=== PATIENT | female | born 1980 | race Caucasian/White ===

== ENCOUNTER 2023-07-07 09:55 | Outpatient (AMB) | payer OTHER, SELFPAY ==
--- NOTE | 2023-07-07 09:59 | MHC.PC.OV ---
Vital Signs 07/07/23 10:02 Height 5 ft 6 in Weight 219 lb BMI 35.3 BP 118/76 Blood Pressure Location Lt brachial Position Sitting Pulse 86 Pulse Source Pulse Oximeter Pulse Oximetry (%) 96 Intake Visit Reasons: New patient, for physical exam Intake Note: pt is here for field marketer establish care, concern back pain Hot Roller Required: No Accompanied by: Self / Same As Patient Allergies No Known Allergies Allergy (Verified 07/07/23 10:25) Medication List - Last Reconciled 07/07/23 by Mohini Almaguer MD bupropion HCl (Wellbutrin XL) 150 mg PO QAM multivitamin with minerals (Hair,Skin and Nails tablet) 1 tab PO DAILY omeprazole 20 mg PO BID Tobacco use date assessed: 07/07/23 Dental Screening Dental Screen Date: 07/07/23 Did you have a dental visit in the last 12 months?: Yes Did you have a dental problem in the last 6 months where you did not have access to dental care?: No Was dental information given to patient?: Patient has dentist HPI New patient, for physical exam HPI Details 43-year-old lady here today to establish with new PCP and for physical exam. She has history of depression with anxiety, currently stable controlled on bupropion, sees a therapist as needed. Has history of dysfunctional uterine bleeding status post partial hysterectomy done at [facility]. She has chronic GERD status post upper endoscopy done at [facility] and also had a colonoscopy done 2020 with negative findings. Currently sees [facility] for her chronic low back pain due to lumbar degenerative disc disease and has history of plantar fasciitis bilateral, currently asymptomatic. Has had COVID back infection in the past, not interested in getting any vaccinations Has a lesion on cheek which she would like to get checked. Requesting dermatology referral [facility] Medical History (Updated 07/11/23 @ 18:33 by Mohini Almaguer MD) Mixed anxiety and depressive disorder Obesity (BMI 30.0-34.9) Chronic GERD History of COVID-19 Lumbar degenerative disc disease Plantar fasciitis, bilateral History of dysfunctional uterine bleeding Surgical History (Updated 07/07/23 @ 10:50 by Mohini Almaguer MD) Hx of esophagogastroduodenoscopy Hx of colonoscopy History of partial hysterectomy Hx of tubal ligation S/P excision of lipoma Family History (Updated 07/07/23 @ 10:10 by Kosta Fletcher [facility]) Mother Heart valve problem Father Diabetes Paternal Grandmother Diabetes Paternal Grandfather Diabetes Social History (Updated 07/07/23 @ 10:11 by Kosta Fletcher [facility]) Housing: Apartment Alcohol intake: current Alcohol intake frequency: a few times a month Alcohol type: hard liquor Patient Tobacco Use Status: Never used Tobacco e-Cigarette/Vaping Use: Never Used Substance Use Type: Marijuana service: No Current occupational status: employed Current occupation: [employer] employee Cognitive needs: No Hearing needs: No Vision needs: Yes Female Reproductive History Menstrual Age of Menarche: 12 control method: permanent sterilization Menopause type: surgical Questionnaire PHQ-9 Over the last 2 weeks, how often have you been bothered by any of the following problems? 1. Little interest or pleasure in doing things: several days 2. Feeling down, depressed, or hopeless: several days 3. Trouble falling or staying asleep, or sleeping too much: not at all 4. Feeling tired or having little energy: not at all 5. Poor appetite or overeating: several days 6. Feeling bad about yourself - or that you are a failure or have let yourself or your family down: several days 7. Trouble concentrating on things, such as reading the newspaper or watching television: not at all 8. Moving or speaking so slowly that other people could have noticed. Or the opposite - being so fidgety or restless that you have been moving around a lot more than usual: not at all 9. Thoughts that you would be better off or of hurting yourself in some way: not at all Total score: 4 Depression Screening Interpretation: Positive Depression Screening Follow-up: Existing condition, In treatment and Community Mental Health Worker F/U (Currently sees a therapist as needed) 07797 - PHQ-9 Billing: Yes Source: Developed by Drs. Dusty Calle, Belkys Yoo, Moy Pugh and colleagues, with an educational michael from [employer]. Thrive Questionnaire Date Thrive assessed: 07/07/23 I am a: Patient What is your living situation today?: I have a steady place to live Within the past 12 months, did the food you bought not last and you didn't have the money to get more?: Never true Within the past 12 months, did you worry whether your food would run out before you got money to buy more?: Never true Do you have trouble paying for medicines?: No Do you have trouble getting transportation to medical appointments?: No Do you have trouble paying your heating and electricity bill?: No Do you have trouble taking care of your child, family member or friend?: No Do you have trouble with day-to-day activities such as bathing, preparing meals, shopping, managing finances, etc.?: No Are you currently unemployed and looking for a job?: No Are you interested in more education?: No Please select the resources that you would like help with: None AUDIT C Alcohol Use Questionnaire (AUDIT-C) 1. How often do you have a drink containing alcohol?: Monthly or less Total Score: 1 Score Reviewed/Action Taken: Yes JANAE-7 AMB Questionnaire JANAE-7 Feeling nervous, anxious, or on edge: 2 = More than half the days Not being able to stop or control worryin = Several days Worrying too much about different things: 1 = Several days Trouble relaxin = Not at all Being so restless that it is hard to sit still: 0 = Not at all Becoming easily annoyed or irritable: 1 = Several days Feeling afraid as if something awful might happen: 0 = Not at all Total JANAE-7 score (0-4 normal; 5-9 mild; 10-14 moderate; 15-21 severe): 5 Source: Developed by Drs. Dusty Calle, Belkys Yoo, Moy Pugh and colleagues, with an educational michael from [employer]. JANAE-7 Assessment Billing JANAE-7 Assessment Tool: JANAE-7 Assessment 56544 Review of Systems Const Denies body aches, Denies fatigue, Denies fever(s), Denies headache(s) and Denies weakness Eyes Details: Sees [facility] for her routine eye exam, wears readers Denies change in vision, Denies eye discharge and Denies itchy eyes ENT Details: sees a dentist in [place] Denies dizziness, Denies headache(s), Denies nasal congestion, Denies nasal discharge and Denies sore throat Card Denies chest pain, Denies lightheadedness, Denies palpitations and Denies dyspnea Resp Denies chest congestion, Denies cough, Denies dyspnea and Denies wheezing GI Denies abdominal pain, Denies change in bowel habits and Denies heartburn Denies hematuria, Denies urinary frequency, Denies dysuria and Denies urinary urgency Musc Reports back pain (Sees [facility]) and Reports stiffness Skin/Breast Denies breast pain, Denies breast mass and Denies rash Neuro Denies dizziness, Denies headache(s) and Denies weakness Psych Reports as per HPI Endo Denies fatigue, Denies polydipsia, Denies polyuria and Denies palpitations Jason/Lymph Denies easy bruising Aller/Immun Denies itchy eyes, Denies seasonal rhinorrhea and Denies wheezing Physical exam (Primary Care) Vital Signs: Last Vital Signs Pulse 86 07/07/23 10:02 BP 118/76 07/07/23 10:02 Pulse Ox 96 07/07/23 10:02 BMI result Body Mass Index 35.3 Tobacco/Smoking Status: Tobacco use Status Tobacco use date assessed 07/07/23 07/07/23 10:13 Patient Tobacco Use Status Never used Tobacco 07/07/23 10:13 e-Cigarette/Vaping Use Never Used 07/07/23 10:13 PHQ-9: PHQ-9 Score PHQ-9: Total score 4 07/07/23 13:59 Depression Screening Interpretation: Positive Depression Screening Follow-up: Existing condition, In treatment and Community Mental Health Worker F/U (Currently sees a therapist as needed) Thrive Assessment: Date of Thrive Assessment Date Thrive assessed 07/07/23 07/07/23 13:59 Const General: comfortable, no acute distress and alert Nutritional Appearance: obese Orientation/consciousness: patient oriented x3 HENMT Head: Yes normocephalic and Yes atraumatic Ears: external ears normal, TM's normal bilaterally and EAC's normal General nose exam: Normal external nose present and No nasal discharge present Face and sinus: Yes face symmetric Mouth: Normal oral and palatal mucosa present, lip normal, tongue normal, oropharynx normal and moist mucous membranes Eyes General: appearance normal, both eyes and all related structures Eyelids: Yes eyelids normal Conjunctivae: conjunctivae normal Sclerae: sclerae normal Pupils: Equal, round and reactive pupils present EOM: EOMs intact bilaterally Neck Neck: Yes full ROM, Yes no lymphadenopathy and Yes supple Thyroid: Thyroid normal Chest Chest palpation & inspection: normal inspection of the chest and normal palpation of entire chest wall Breast/axilla inspection: normal inspection of the breasts Breast/axilla palpation: normal palpation of the breasts Resp Effort & Inspection: normal respiratory effort and able to speak in complete sentences Auscultation: clear to auscultation bilaterally Cardio Rate: regular rate Rhythm: regular rhythm Heart sounds: S1 normal heart sound present and S2 normal heart sound present GI Palpation (GI): Soft to palpation, nontender, no guarding and no masses Auscultation: normal bowel sounds General: Yes no CVA tenderness Back/Spine/Pelvis Back: no CVA tenderness and No back tenderness Skin Other: Hyperpigmented slightly raised lesion on cheek Neuro General: patient oriented x3, gait normal, moves all extremities, Normal light touch and pain sensation, no focal motor deficits and CN's II-XI intact bilaterally Cranial nerves: Yes Equal, round and reactive pupils present Cognition (Neuro): normal cognition Gait exam (Neuro): Normal gait present Motor exam (neuro): 5/5 motor strength present throughout Extrem General: Yes normal to inspection, Yes full ROM, Yes no joint enlargement, Yes no pedal edema and Yes normal gait Psych Appearance: grossly normal and well kempt Mental Status: mental status grossly normal Speech and movement: Normal speech and movement present Affect: normal affect Attitude: cooperative Thought process: Normal thought process present Thought content: Normal thought content present Assessment and Plan Assessment & Plan (1) Annual visit for general adult medical examination with abnormal findings: Code(s): Z00.01 - Encounter for general adult medical examination with abnormal findings Plan: Will check appropriate labs. Continue with regular dental visit every 6 months and regular eye exams, at least every [address] Livingston. Take adequate calcium in diet and vitamin-D 3 at 2000 IU per cap once a day, in addition to weight-bearing exercises to help maintain good muscle tone and weight control. Instructed to do self-breast exam, and recommended to get yearly mammogram, referral ordered. Has already had a colonoscopy in 2020. Declines vaccines (2) Chronic GERD: Code(s): K21.9 - Gastro-esophageal reflux disease without esophagitis Plan: Takes omeprazole 20 mg twice a day (3) Lumbar degenerative disc disease: Comment: sees [facility] Code(s): M51.36 - Other intervertebral disc degeneration, lumbar region Plan: Currently followed at [facility] (4) Plantar fasciitis, bilateral: Code(s): M72.2 - Plantar fascial fibromatosis Plan: Currently asymptomatic (5) History of dysfunctional uterine bleeding: Comment: 3x Code(s): Z87.42 - Personal history of other diseases of the female genital tract Plan: Status post partial hysterectomy (6) Obesity (BMI 30.0-34.9): Code(s): E66.9 - Obesity, unspecified Plan: . Recommended focusing on improving your health instead of dieting. : Eat Mediterranean diet, limit foods high in fat, sugar, and calories, eat slowly, pay attention to portion sizes, plan your meals ahead of time, start regular physical activity 150 minutes of moderate intensity exercise or 90 minutes/week of vigorous exercise and increase water intake. (7) Facial skin lesion: Code(s): L98.9 - Disorder of the skin and subcutaneous tissue, unspecified Plan: Dermatology consult ordered (8) Skin cancer screening: Code(s): Z12.83 - Encounter for screening for malignant neoplasm of skin Plan: Dermatology consult ordered (9) Mixed anxiety and depressive disorder: Code(s): F41.8 - Other specified anxiety disorders Plan: Continue with bupropion HCL, followed by therapist Orders: Orders MM screening mammo BI 07/07/23 Z12.31 - Encounter for screening mammogram for malignant neoplasm of breast Complete Blood Count Auto Diff 07/07/23 F32.A - Depression, unspecified, K21.9 - Gastro-esophageal reflux disease without esophagitis, M51.36 - Other intervertebral disc degeneration, lumbar region, Z00.01 - Encounter for general adult medical examination with abnormal findings, Z87.42 - Personal history of other diseases of the female genital tract Comprehensive [place]. Panel Fast 07/07/23 F32.A - Depression, unspecified, K21.9 - Gastro-esophageal reflux disease without esophagitis, M51.36 - Other intervertebral disc degeneration, lumbar region, Z00.01 - Encounter for general adult medical examination with abnormal findings, Z87.42 - Personal history of other diseases of the female genital tract Lipid Panel 07/07/23 F32.A - Depression, unspecified, K21.9 - Gastro-esophageal reflux disease without esophagitis, M51.36 - Other intervertebral disc degeneration, lumbar region, Z00.01 - Encounter for general adult medical examination with abnormal findings, Z87.42 - Personal history of other diseases of the female genital tract TSH reflex Free T4 07/07/23 F32.A - Depression, unspecified, K21.9 - Gastro-esophageal reflux disease without esophagitis, M51.36 - Other intervertebral disc degeneration, lumbar region, Z00.01 - Encounter for general adult medical examination with abnormal findings, Z87.42 - Personal history of other diseases of the female genital tract Vitamin D 25-OH Total 07/07/23 F32.A - Depression, unspecified, K21.9 - Gastro-esophageal reflux disease without esophagitis, M51.36 - Other intervertebral disc degeneration, lumbar region, Z00.01 - Encounter for general adult medical examination with abnormal findings, Z87.42 - Personal history of other diseases of the female genital tract Vitamin B12 and Folate 07/07/23 F32.A - Depression, unspecified, K21.9 - Gastro-esophageal reflux disease without esophagitis, M51.36 - Other intervertebral disc degeneration, lumbar region, Z00.01 - Encounter for general adult medical examination with abnormal findings, Z87.42 - Personal history of other diseases of the female genital tract Referrals Dermatology Referral L98.9 - Disorder of the skin and subcutaneous tissue, unspecified, Z12.83 - Encounter for screening for malignant neoplasm of skin Medications: New bupropion HCl (Wellbutrin XL) 150 mg PO QAM 90 tabs 3RF Coding Level of Care Code New Pt Prev Care 40-64y(84642) Diagnoses Annual visit for general adult medical examination with abnormal findings Z00.01 Chronic GERD K21.9 Lumbar degenerative disc disease M51.36 Plantar fasciitis, bilateral M72.2 History of dysfunctional uterine bleeding Z87.42 Obesity (BMI 30.0-34.9) E66.9 Facial skin lesion L98.9 Skin cancer screening Z12.83 Mixed anxiety and depressive disorder F41.8 Additional Codes JANAE-7 Assessment Billing - JANAE-7 Assessment Tool: JANAE-7 Assessment 74431 ([id number])
[2023-07-07 10:02] VITALS: BP 118/76; PULSE 86; O2SAT 96; BMI 35.3
== END 2023-07-07 11:41 | disposition home or self-care (01) ==
PROVIDERS: Visit Provider Internal Medicine
DX: Z00.01 Encounter for general adult medical examination with abnormal findings (principal); K21.9 Gastro-esophageal reflux disease without esophagitis; M51.36 Other intervertebral disc degeneration, lumbar region; M72.2 Plantar fascial fibromatosis; Z87.42 Personal history of other diseases of the female genital tract; E66.9 Obesity, unspecified; L98.9 Disorder of the skin and subcutaneous tissue, unspecified; Z12.83 Encounter for screening for malignant neoplasm of skin; F41.8 Other specified anxiety disorders
CPT/HCPCS: 99386

== ENCOUNTER 2023-07-15 10:43 | Outpatient (REF) | payer OTHER, SELFPAY ==
--- NOTE | ~2023-07-15 | MM_ITS ---
EXAMINATION: MM SCREENING DIGITAL BREAST TOMOSYNTHESIS, BILATERAL CLINICAL INFORMATION: Screening. Asymptomatic. COMPARISON: Mammography: This is a baseline study. TECHNIQUE: Digital breast tomosynthesis is performed in both the craniocaudal and mediolateral oblique views along with computer-aided detection (CAD). Synthesized 2D images are generated from the tomosynthesis. FINDINGS: The breasts are heterogeneously dense, which may obscure small masses (ACR BI-RADS breast composition Category c). There are no significant masses, abnormal calcifications, or other abnormalities. MM/MM tomosynthesis screening BI IMPRESSION: No mammographic evidence of malignancy. ASSESSMENT: BI-RADS BI-RADS 1 - Negative RECOMMENDATION: Routine annual mammography screening. 1 year F/U This examination should not preclude the clinical evaluation of a suspicious palpable abnormality. This patient's information was entered into a reminder system with a target due date for their next mammogram.
== END 2023-07-15 10:44 | disposition home or self-care (01) ==
LOC: HO.MAMMO 10:43
PROVIDERS: PCP Internal Medicine; Visit Provider Internal Medicine
DX: Z12.31 Encounter for screening mammogram for malignant neoplasm of breast (principal)
CPT/HCPCS: 77063; 77067

== ENCOUNTER → 2023-07-15 10:45 | Outpatient (BNV) | payer OTHER, SELFPAY | PROVIDERS: PCP Internal Medicine; Visit Provider Radiology Diagnostic Radiology | DX: Z12.31 Encounter for screening mammogram for malignant neoplasm of breast (principal) | CPT/HCPCS: 77063; 77067 ==

== ENCOUNTER 2023-11-15 11:06 | Outpatient (REF) | payer OTHER, SELFPAY ==
[2023-11-15 12:40] LABS: Binax Internal Control QC Valid; Binax Now Covid-19 Ag Negative (Negative); Binax Performed by: HO.BONILM
[2023-11-15 13:18] LABS: MANUAL DIFF FLAG NO
[2023-11-15 13:33] LABS: Basophils Absolute Auto 0.1 X10*3/uL (0.0-0.2); Basophils Percent Auto 0.6 % (0-2); Eosinophils Absolute Auto 0.2 X10*3/uL (0.0-0.4); Eosinophils Percent Auto 2.1 % (0-4); Hematocrit 45.3 % (37.0-47.0); Hemoglobin 15.2 g/dl (12.0-16.0); Imm Gran Abs Auto 0.06 X10*3/uL (0.00-0.03); Imm Gran Pct Auto 0.7 % (0.0-0.4); Lymphocytes Absolute Auto 2.1 X10*3/uL (1.2-4.9); Mean Corpuscular HGB Conc 33.6 g/dl (31.0-35.0); Mean Corpuscular Hemoglobin 30.6 pg (27.0-33.0); Mean Corpuscular Volume 91.3 fL (80.0-98.0); Mean Platelet Volume 10.3 fL (9.4-12.3); Monocytes Absolute Auto 0.7 X10*3/uL (0.1-1.2); Monocytes Percent Auto 8.1 % (2-11); Neutrophils Absolute Auto 5.7 x10*3/uL (2.0-8.3); Neutrophils Percent Auto 64.5 % (45-73); Platelet Count 296 X10*3/uL (160-400); Red Blood Count 4.96 X10*6/uL (4.20-5.50); Red Cell Distribution Width 11.9 % (11.0-16.0); White Blood Count 8.8 X10*3/uL (4.8-10.8)
[2023-11-15 13:58] LABS: Alanine Aminotransferase 18 U/L (0-31); Albumin Level 4.2 g/dL (3.5-5.0); Alkaline Phosphatase 109 U/L (39-117); Anion Gap 11 (12-20); Aspartate Amino Transferase 16 U/L (5-31); Bilirubin Total 0.4 mg/dL (0.0-1.0); Blood Urea Nitrogen 11 mg/dL (9-16); Calcium 9.2 mg/dL (8.4-10.2); Carbon Dioxide 26 mmol/L (22-29); Chloride 105 mmol/L (96-108); Cholesterol 189 mg/dL (<200); Estimated Glomerular Filt Rate > 60; Glucose Fasting 94 mg/dL (60-99); HDL Cholesterol 53 mg/dL (>40); LDL Cholesterol Calculated 124 mg/dL (<100); Potassium 4.3 mmol/L (3.3-5.1); Sodium 138 mmol/L (135-145); Total Protein 7.8 g/dL (6.5-8.0); Triglycerides 62 mg/dL (<150)
[2023-11-15 14:18] LABS: Vitamin D 25-OH Total 45.1 ng/mL (>30)
[2023-11-15 14:19] LABS: Folate 6.9 ng/mL (> or = 4.0); Vitamin B12 479 pg/mL (200-900)
== END 2023-11-15 11:07 | disposition home or self-care (01) ==
LOC: HO.HMGCLDS 11:06
PROVIDERS: PCP Internal Medicine; Referring Provider Physician Assistant; Visit Provider Internal Medicine
DX: Z00.01 Encounter for general adult medical examination with abnormal findings (principal); K21.9 Gastro-esophageal reflux disease without esophagitis; F32.A Depression, unspecified; M51.36 Other intervertebral disc degeneration, lumbar region; B34.9 Viral infection, unspecified; Z87.42 Personal history of other diseases of the female genital tract
CPT/HCPCS: 36415; 80053; 80061; 82306; 82607; 82746; 84443; 85025; 87811

== ENCOUNTER 2023-11-15 11:15 | Outpatient (AMB) | payer OTHER, SELFPAY ==
[2023-11-15 11:38] VITALS: BP 124/72; PULSE 97; TEMP 36.8; O2SAT 96; BMI 35.2
--- NOTE | 2023-11-15 11:38 | AM.OFFWIN_ITS ---
Intake Vital Signs 11/15/23 11:38 Height 5 ft 6 in Weight 98.883 kg BMI 35.2 BP 124/72 Blood Pressure Location Lt brachial Position Sitting Pulse 97 Pulse Source Pulse Oximeter Temp 98.2 F Temp Source Temporal Artery Scan Pulse Oximetry (%) 96 Oxygen Delivery Method Room Air Intake Visit Reasons: EP stuffy nose headache sore throat [id number] Intake Note: pt is here today for stuff nose headache sore throat started Patient Tobacco Use Status: Never used Tobacco Allergies No Known Allergies Allergy (Verified 07/07/23 10:25) HPI HPI Comments History of Present Illness Details 1153 43-year-old female presents with fatigue , malaise, myalgias, cough, sore throat x2 days. Daughter was sick at home with similar symptoms however now improving. Reports some wheezing patient has history of asthma however does not have an inhaler. Denies chest pain, fevers, chills, nausea, vomiting, diarrhea, vision changes, headache and weakness. Physical examination benign Likely viral illness. Unlikely meningitis, encephalitis epiglottitis, retropharyngeal or peritonsillar abscess, threat to airway, pneumonia, ACS or PE. Plan viral testing. Will send albuterol inhaler. Educated patient on diagnosis and treatment plan, answered all question, patient verbalizes understanding. At this time patient will be discharged home, advised to return with new or worsening symptoms. Educated on worrisome signs and symptoms and when to return. At this time I feel comfortable discharge home. [facility] Medical History Mixed anxiety and depressive disorder Obesity (BMI 30.0-34.9) Chronic GERD History of COVID-19 Lumbar degenerative disc disease Plantar fasciitis, bilateral History of dysfunctional uterine bleeding Surgical History Hx of esophagogastroduodenoscopy Hx of colonoscopy History of partial hysterectomy Hx of tubal ligation S/P excision of lipoma Family History Mother Heart valve problem Father Diabetes Paternal Grandmother Diabetes Paternal Grandfather Diabetes Social History Housing: Apartment Alcohol intake: current Alcohol intake frequency: a few times a month Alcohol type: hard liquor Patient Tobacco Use Status: Never used Tobacco e-Cigarette/Vaping Use: Never Used Substance Use Type: Marijuana service: No Current occupational status: employed Current occupation: [employer] employee Cognitive needs: No Hearing needs: No Vision needs: Yes Female Reproductive History Menstrual Age of Menarche: 12 Review of Systems Const All systems reviewed & are unremarkable except as noted in HPI and below Physical Exam Vital Signs: Last Vital Signs Temp 98.2 F 11/15/23 11:38 Pulse 97 11/15/23 11:38 BP 124/72 11/15/23 11:38 Pulse Ox 96 11/15/23 11:38 Oxygen Delivery Method Room Air 11/15/23 11:38 BMI result Body Mass Index 35.2 vss Appearance: Alert.? Oriented X3.? No acute distress.? Head: Normocephalic, atraumatic, no step-offs or deformities Eyes: Pupils equal, round and reactive to light.? ENT: Pharynx normal.?no edema. Uvula midline. Not abscess, or exudate. Speaking in full sentences normal voice controlling secretions well. Neck: Normal inspection.? Neck supple.? CVS: Normal heart rate and rhythm.? Pulses normal.? Respiratory: No respiratory distress.? Breath sounds normal.? Abdomen: Soft and nontender.? Skin: Skin warm and dry.? Normal skin color.? Normal skin turgor.? Extremities: No lower extremity edema.? No calf ttp. 5/5 strength to bilateral upper and lower extremities Neuro: Oriented X 3.? No motor deficit.? No sensory deficit. CN 2-12 intact Assessment & Plan Assessment & Plan (1) Viral upper respiratory illness: Code(s): J06.9 - Acute upper respiratory infection, unspecified Plan Take your medications as prescribed. If you were prescribed antibiotics today, it is important that you take your medication to their entirety, do not skip any doses, do not finish them early. Follow-up with your primary care provider this week. Return to the emergency department with new or worsening symptoms. Such as fevers, chills, chest pain, shortness of breath, nausea, vomiting, dizziness, headache, vision changes, lethargy In case of emergency call 911 Orders: Orders BinaxNOW Covid-19 Ag Today B34.9 - Viral infection, unspecified Medications: New albuterol sulfate 90 mcg/actuation 2 puffs inhalation Q6H PRN 6.7 grams 0RF shortness of breath or wheezing Coding Level of Care Code Est Pt Level 3 (17870) Diagnoses Viral upper respiratory illness J06.9
== END 2023-11-15 11:54 | disposition home or self-care (01) ==
PROVIDERS: PCP Internal Medicine; Visit Provider Physician Assistant
DX: J06.9 Acute upper respiratory infection, unspecified (principal); J02.9 Acute pharyngitis, unspecified
CPT/HCPCS: 87880; 99213

== ENCOUNTER 2024-02-16 13:05 | Outpatient (AMB) | payer OTHER, SELFPAY ==
--- NOTE | 2024-02-16 14:00 | A.OFFPC_ITS ---
Vital Signs 02/16/24 14:01 Height 5 ft 6 in Weight 225 lb BMI 36.3 BP 122/70 Blood Pressure Location Lt brachial Position Sitting Pulse 89 Pulse Source Pulse Oximeter Pulse Oximetry (%) 96 Oxygen Delivery Method Room Air Intake Visit Reasons: Follow up Labs, health concerns Intake Note: pt is here for follow up regarding labs and swollen legs Allergies No Known Allergies Allergy (Verified 04/05/24 01:02) Medication List - Last Reconciled 02/16/24 by Mohini Almaguer MD albuterol sulfate 90 mcg/actuation 2 puffs inhalation Q6H PRN bupropion HCl XL (Wellbutrin XL) 150 mg PO QAM multivitamin with minerals (Hair,Skin and Nails tablet) 1 tab PO DAILY omeprazole 20 mg PO BID Tobacco use date assessed: 02/16/24 Dental Screening Dental Screen Date: 02/16/24 Did you have a dental visit in the last 12 months?: Yes Did you have a dental problem in the last 6 months where you did not have access to dental care?: No Was dental information given to patient?: Patient has dentist HPI Follow up Labs, health concerns HPI Details 44-year-old lady here today complaining of intermittent episodes of swelling in both feet, worse towards the end of the day. She has also been having pain over dorsal aspect of both feet. This is made worse when she walks or stands for extended periods of time. She has been elevating her legs which affords only slight improvement in the swelling. Denies any chest pain or shortness of breath, no lightheadedness reported. Recent recent fasting labs done showed normal CBC, electrolytes, renal function, fasting glucose, lipids liver enzymes and vitamin-D levels are all within normal limits [facility] Medical History (Updated 02/16/24 @ 14:41 by Mohini Almaguer MD) Swelling of lower extremity Mixed anxiety and depressive disorder Obesity (BMI 30.0-34.9) Chronic GERD History of COVID-19 Lumbar degenerative disc disease Plantar fasciitis, bilateral History of dysfunctional uterine bleeding Surgical History Hx of esophagogastroduodenoscopy Hx of colonoscopy History of partial hysterectomy Hx of tubal ligation S/P excision of lipoma Family History Mother Heart valve problem Father Diabetes Paternal Grandmother Diabetes Paternal Grandfather Diabetes Social History Housing: Apartment Alcohol intake: current Alcohol intake frequency: a few times a month Alcohol type: hard liquor Patient Tobacco Use Status: Never used Tobacco e-Cigarette/Vaping Use: Never Used Substance Use Type: Marijuana service: No Current occupational status: employed Current occupation: [employer] employee Cognitive needs: No Hearing needs: No Vision needs: Yes Female Reproductive History Menstrual Age of Menarche: 12 Questionnaire PHQ-9 Over the last 2 weeks, how often have you been bothered by any of the following problems? 1. Little interest or pleasure in doing things: several days 2. Feeling down, depressed, or hopeless: not at all 3. Trouble falling or staying asleep, or sleeping too much: not at all 4. Feeling tired or having little energy: not at all 5. Poor appetite or overeating: several days 6. Feeling bad about yourself - or that you are a failure or have let yourself or your family down: several days 7. Trouble concentrating on things, such as reading the newspaper or watching television: not at all 8. Moving or speaking so slowly that other people could have noticed. Or the opposite - being so fidgety or restless that you have been moving around a lot more than usual: not at all 9. Thoughts that you would be better off or of hurting yourself in some way: not at all Total score: 3 Depression Screening Interpretation: Positive (Currently on bupropion HCL XL 150 mg in a.m.) Depression Screening Follow-up: Existing condition and In treatment Depression Screening Done: Yes 31976 - PHQ-9 Billing: Yes Source: Developed by Drs. Dusty Calle, Belkys Yoo, Moy Pugh and colleagues, with an educational michael from [employer]. Thrive Questionnaire Date Thrive assessed: 02/16/24 I am a: Patient What is your living situation today?: I have a steady place to live Within the past 12 months, did the food you bought not last and you didn't have the money to get more?: Never true Within the past 12 months, did you worry whether your food would run out before you got money to buy more?: Never true Do you have trouble paying for medicines?: No Do you have trouble getting transportation to medical appointments?: No Do you have trouble paying your heating and electricity bill?: No Do you have trouble taking care of your child, family member or friend?: No Do you have trouble with day-to-day activities such as bathing, preparing meals, shopping, managing finances, etc.?: No Are you currently unemployed and looking for a job?: No Are you interested in more education?: No Please select the resources that you would like help with: None Currently or been in a relationship where the following occur: no concerns reported THRIVE Score: 0 AUDIT C Alcohol Use Questionnaire (AUDIT-C) 1. How often do you have a drink containing alcohol?: Monthly or less 3. How often do you have six or more drinks on one occasion?: Never Total Score: 1 Score Reviewed/Action Taken: Yes JANAE-7 AMB Questionnaire JANAE-7 Date JANAE - 7 assessed: 02/16/24 Feeling nervous, anxious, or on edge: 2 = More than half the days Not being able to stop or control worryin = Several days Worrying too much about different things: 1 = Several days Trouble relaxin = Not at all Being so restless that it is hard to sit still: 0 = Not at all Becoming easily annoyed or irritable: 1 = Several days Feeling afraid as if something awful might happen: 0 = Not at all Total JANAE-7 score (0-4 normal; 5-9 mild; 10-14 moderate; 15-21 severe): 5 Source: Developed by Drs. Dusty Calle, Belkys Yoo, Moy Pugh and colleagues, with an educational michael from [employer]. JANAE-7 Assessment Billing JANAE-7 Assessment Tool: JANAE-7 Assessment 12809 Review of Systems Const Denies fatigue, Denies fever(s), Denies headache(s) and Denies weakness Eyes Denies change in vision ENT Details: sees a dentist in [place] Denies dizziness, Denies headache(s), Denies nasal congestion, Denies nasal discharge and Denies sore throat Card Denies chest pain, Denies lightheadedness, Denies palpitations and Denies dyspnea Resp Denies chest congestion, Denies cough, Denies dyspnea and Denies wheezing GI Denies abdominal pain, Denies change in bowel habits and Denies heartburn Denies hematuria, Denies urinary frequency, Denies dysuria and Denies urinary urgency Musc Reports back pain (Sees PSSP), Denies arthralgias, Denies muscle cramps and Reports stiffness Skin/Breast Denies breast pain, Denies breast mass and Denies rash Neuro Denies dizziness, Denies headache(s) and Denies weakness Psych Reports as per HPI Endo Denies fatigue, Denies polydipsia, Denies polyuria and Denies palpitations Jason/Lymph Denies easy bruising Aller/Immun Denies seasonal rhinorrhea and Denies wheezing Physical exam (Primary Care) Vital Signs: Last Vital Signs Pulse 89 02/16/24 14:01 BP 122/70 02/16/24 14:01 Pulse Ox 96 02/16/24 14:01 Oxygen Delivery Method Room Air 02/16/24 14:01 BMI result Body Mass Index 36.3 Tobacco/Smoking Status: Tobacco use Status Tobacco use date assessed 02/16/24 02/16/24 14:04 Patient Tobacco Use Status Never used Tobacco 02/16/24 14:04 e-Cigarette/Vaping Use Never Used 02/16/24 14:04 PHQ-9: PHQ-9 Score PHQ-9: Total score 4 02/16/24 14:42 Depression Screening Interpretation: Positive (Currently on bupropion HCL XL 150 mg in a.m.) Depression Screening Follow-up: Existing condition and In treatment Thrive Assessment: Date of Thrive Assessment Date Thrive assessed 02/16/24 02/16/24 14:04 Currently or been in a relationship where the following occur: no concerns reported Const General: comfortable, no acute distress and alert Nutritional Appearance: obese Orientation/consciousness: patient oriented x3 HENMT Head: Yes normocephalic Ears: external ears normal General nose exam: Normal external nose present and No nasal discharge present Face and sinus: Yes face symmetric Mouth: Normal oral and palatal mucosa present and moist mucous membranes Eyes General: appearance normal, both eyes and all related structures Neck Neck: Yes full ROM, Yes no lymphadenopathy and Yes supple Thyroid: Thyroid normal Chest Chest palpation & inspection: normal inspection of the chest and normal palpation of entire chest wall Breast/axilla inspection: normal inspection of the breasts Breast/axilla palpation: normal palpation of the breasts Resp Effort & Inspection: normal respiratory effort and able to speak in complete sentences Auscultation: clear to auscultation bilaterally Cardio Rate: regular rate Rhythm: regular rhythm Heart sounds: S1 normal heart sound present and S2 normal heart sound present GI Palpation (GI): Soft to palpation, nontender, no guarding and no masses Auscultation: normal bowel sounds General: Yes no CVA tenderness Back/Spine/Pelvis Back: no CVA tenderness and No back tenderness Skin Other: Superficial varicosities noted in both lower extremity Neuro General: patient oriented x3, gait normal, moves all extremities, Normal light touch and pain sensation, no focal motor deficits and CN's II-XI intact bilaterally Cognition (Neuro): normal cognition Gait exam (Neuro): Normal gait present Motor exam (neuro): 5/5 motor strength present throughout Extrem Other: 1+ edema bilaterally, no calf tenderness General: Yes normal to inspection, Yes full ROM, Yes no joint enlargement and Yes normal gait Psych Appearance: grossly normal and well kempt Mental Status: mental status grossly normal Speech and movement: Normal speech and movement present Affect: normal affect Attitude: cooperative Thought process: Normal thought process present Thought content: Normal thought content present Results Reviewed Results Reviewed: RUN: 02/16/24 5180 PAGE 1 [facility] [address] [place] [id number] Machine Gun Mechanic: Js Sherman M.D. Specimen Inquiry Name: Carmel Simons Age/Sex: 43/F : 1980 Unit#: [id number] Attend Dr: Mohini Almaguer MD Re11/15/23 Status: DEP REF Location: [facility] Disch: SPEC : [id number] KRAIG: 11/15/23 STATUS: COMP REQ : [id number] RECD: 11/15/[address]: Mohini Almaguer MD COMP: 11/15/23 ENTERED: 11/15/[address] [facility] [address]: ORDERED: CBC Auto Diff Test Result Flag Reference WBC 8.8 4.8-10.8 X10*3/uL RBC 4.96 4.20-5.50 X10*6/uL HGB 15.2 12.0-16.0 g/dl HCT 45.3 37.0-47.0 % MCV 91.3 80.0-98.0 fL MCH 30.6 27.0-33.0 pg MCHC 33.6 31.0-35.0 g/dl RDW 11.9 11.0-16.0 % PLT 296 160-400 X10*3/uL MPV 10.3 9.4-12.3 fL Neut Pct Auto 64.5 45-73 % ImGran Pct Auto 0.7 H 0.0-0.4 % Lymp Pct Auto 24.0 20-40 % [place] Pct Auto 8.1 2-11 % Eos Pct Auto 2.1 0-4 % Baso Pct Auto 0.6 0-2 % NRBC Pct Auto 0.0 0.0-0.2 /100WBC ANC Neut Abs # 5.7 2.0-8.3 x10*3/uL ImGran Abs Auto 0.06 H 0.00-0.03 X10*3/uL Lymph Abs Auto 2.1 1.2-4.9 X10*3/uL [place] Abs Auto 0.7 0.1-1.2 X10*3/uL Eos Abs Auto 0.2 0.0-0.4 X10*3/uL Baso Abs Auto 0.1 0.0-0.2 X10*3/uL NRBC Abs Auto 0.000 0.0-0.012 X10*3/uL Name: Carmel Simons Age/Sex: 43/F : 1980 Unit#: [id number] Attend Dr: Mohini Almaguer MD Re11/15/23 Status: DEP REF Location: [facility]: SPEC : [id number] KRAIG: 11/15/23 STATUS: COMP REQ : [id number] RECD: 11/15/[address]: Mohini Almaguer MD COMP: 11/15/23 ENTERED: 11/15/[address]: ORDERED: CMP Fast, Lipid Panel, Vitamin D 25-OH, TSH Rflx Test Result Flag Reference Sodium 138 135-145 mmol/L Potassium 4.3 3.3-5.1 mmol/L CL 105 96-108 mmol/L CO2 26 22-29 mmol/L Gap 11 L 12-20 BUN 11 9-16 mg/dL Creat 0.83 0.5-1.4 mg/dL EGFR > 60 NOTE: For -Brazilian individuals, multiply the result by 1.210. Chronic Kidney Disease: Estimated GFR < 60 mL/min/1.73m2 Severe Kidney Disease: Estimated GFR < 15 mL/min/1.73m2 FBS 94 60-99 mg/dL CA 9.2 8.4-10.2 mg/dL Total Bili 0.4 0.0-1.0 mg/dL AST (GOT) 16 5-31 U/L ALT (GPT) 18 0-31 U/L Protein, Total 7.8 6.5-8.0 g/dL Alb 4.2 3.5-5.0 g/dL Triglyceride 62 <150 mg/dL Desirable Triglyceride: less than 150 mg/dL Borderline High Triglyceride 150-199 mg/dL High Triglyceride: 200-499 mg/dL Very High Triglyceride: greater than or equal to 5OO mg/dL Cholesterol 189 <200 mg/dL Desirable Cholesterol: less than 200 mg/dL Borderline High Cholesterol: 200-239 mg/dL High Cholesterol: greater than 239 mg/dL LDL Calculated 124 H <100 mg/dL Desirable LDL: less than 100 mg/dL Near Optimal/Above Optimal LDL: 110-129 mg/dL Borderline High LDL: 130-159 mg/dL High LDL: 160-189 mg/dL Very High LDL: greater than or equal to 190 mg/dL HDL 53 >40 mg/dL Desirable HDL: greater than 40 mg/dL Note: This HDL assay may give artificially low results in patients with liver disease. Alk Phos 109 39-117 U/L Vit D 25-OH Tot 45.1 >30 ng/mL Health Based Reference Values* < 20 ng/mL Deficient 20-30 ng/mL Insufficient > 30 ng/mL Sufficient *Cara BOWMAN. N Engl J Med. 2007;357:266-280 Care must be taken in interpreting Vitamin D results from different laboratories and methodologies. Published da ta demonstrated that results from patients undergoing hemodialysis may show a negative bias when tested with various automated 25-OH vitamin D assays when compared to LC-MS/MS. When testing samples from patients whose predominant form of Vitamin D is Vitamin D2, such as patients receiving Vitamin D2 supplementation, results that are subtherapeutic should be confirmed with another method such as LC-MS/MS. TSH 0.60 0.32-4.0 uIU/mL Assessment and Plan Assessment & Plan (1) Swelling of lower extremity: Code(s): M79.89 - Other specified soft tissue disorders Plan: Advised to elevate both feet especially towards the end of the day, massaged legs with absorbent sariah or any other kask-vwf-eyvpvhp arthritis cream. Advised to try wearing travels socks when ambulating or if going to be on feet for long time. Remove at night. Will refer to vascular surgery for further evaluation management. 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 May try soaking both feet warm Epsom water. Elevate legs as much as possible. May try massaging arthritis cream to affected area. Orders: Referrals Vascular Surgery Referral M79.89 - Other specified soft tissue disorders Coding Level of Care Code Est Pt Level 4 (55224) Diagnoses Swelling of lower extremity M79.89 Pain in metatarsus of both feet M89.8X7 Additional Codes JANAE-7 Assessment Billing - JANAE-7 Assessment Tool: JANAE-7 Assessment 09817 ([id number])
[2024-02-16 14:01] VITALS: BP 122/70; PULSE 89; O2SAT 96; BMI 36.3
== END 2024-02-16 14:34 | disposition home or self-care (01) ==
PROVIDERS: PCP Internal Medicine; Visit Provider Internal Medicine
DX: M79.89 Other specified soft tissue disorders (principal); M89.8X7 Other specified disorders of bone, ankle and foot
CPT/HCPCS: 99214

== ENCOUNTER 2024-02-16 14:42 | Outpatient (REF) | payer OTHER, SELFPAY ==
--- NOTE | ~2024-02-16 | XR_ITS ---
EXAMINATION: XR FOOT, BILATERAL CLINICAL INFORMATION: Specified disorders of bone, ankle and foot. COMPARISON: None available. TECHNIQUE: 3 views of each foot. FINDINGS: Right Foot: Small dorsal and plantar calcaneal spurs. Bone mineralization is normal. Mild degenerative changes in the first metatarsophalangeal joint with mild hypertrophic change. Sclerotic density overlying the right third metatarsal head may represent a bone island. Mild degenerative changes with sclerosis at the first tarsometatarsal joint. Small ossicles adjacent to the tarsal navicular, along the medial aspect of the foot, likely accessory ossicles, but correlation with clinical exam recommended for confirmation. Left Foot: Small dorsal and plantar calcaneal spurs. Bone mineralization is normal. Mild degenerative changes in the first metatarsophalangeal joint with mild hypertrophic change. Small ossicles adjacent to the tarsal navicular, along the medial aspect of the foot, likely accessory ossicles, but correlation with clinical exam recommended for confirmation. XR/XR foot LT min 3V IMPRESSION: 1. Mild degenerative changes bilateral first metatarsophalangeal joints. 2. Small bilateral calcaneal spurs. 3. Sclerotic density overlying the right third metatarsal head may represent a bone island. 4. Small ossicles adjacent to the tarsal navicular, along the medial aspect of the foot, likely accessory ossicles, but correlation with clinical exam recommended for confirmation. 5. Recommend follow-up imaging in 10-14 days if fracture is suspected.
--- NOTE | ~2024-02-16 | XR_ITS ---
EXAMINATION: XR FOOT, BILATERAL CLINICAL INFORMATION: Specified disorders of bone, ankle and foot. COMPARISON: None available. TECHNIQUE: 3 views of each foot. FINDINGS: Right Foot: Small dorsal and plantar calcaneal spurs. Bone mineralization is normal. Mild degenerative changes in the first metatarsophalangeal joint with mild hypertrophic change. Sclerotic density overlying the right third metatarsal head may represent a bone island. Mild degenerative changes with sclerosis at the first tarsometatarsal joint. Small ossicles adjacent to the tarsal navicular, along the medial aspect of the foot, likely accessory ossicles, but correlation with clinical exam recommended for confirmation. Left Foot: Small dorsal and plantar calcaneal spurs. Bone mineralization is normal. Mild degenerative changes in the first metatarsophalangeal joint with mild hypertrophic change. Small ossicles adjacent to the tarsal navicular, along the medial aspect of the foot, likely accessory ossicles, but correlation with clinical exam recommended for confirmation. XR/XR foot RT min 3V IMPRESSION: 1. Mild degenerative changes bilateral first metatarsophalangeal joints. 2. Small bilateral calcaneal spurs. 3. Sclerotic density overlying the right third metatarsal head may represent a bone island. 4. Small ossicles adjacent to the tarsal navicular, along the medial aspect of the foot, likely accessory ossicles, but correlation with clinical exam recommended for confirmation. 5. Recommend follow-up imaging in 10-14 days if fracture is suspected.
== END 2024-02-16 14:43 | disposition home or self-care (01) ==
LOC: HO.HMGCX 14:42
PROVIDERS: PCP Internal Medicine; Visit Provider Internal Medicine
DX: M89.8X7 Other specified disorders of bone, ankle and foot (principal)
CPT/HCPCS: 73630

== ENCOUNTER 2024-04-11 12:12 | Outpatient (AMB) | payer OTHER, SELFPAY ==
--- NOTE | 2024-04-11 12:23 | MHC.OFFWIV ---
Intake Vital Signs 04/11/24 12:24 Height 5 ft 6 in Weight 222 lb BMI 35.8 BP 110/76 Blood Pressure Location Rt radial Position Sitting Pulse 103 H Pulse Source Pulse Oximeter Temp 98.9 F Temp Source Oral Pulse Oximetry (%) 97 Oxygen Delivery Method Room Air Intake Visit Reasons: EP sore throat Intake Note: pt here c/o sore throat. Started Yesterday Patient Tobacco Use Status: Never used Tobacco Allergies No Known Allergies Allergy (Verified 04/11/24 12:53) Medication List - Last Reconciled 04/11/24 by JEANMARIE Sanchez albuterol sulfate 90 mcg/actuation 2 puffs inhalation Q6H PRN amoxicillin 500 mg (6.25 mL) PO BID 10 days bupropion HCl XL (Wellbutrin XL) 150 mg PO QAM multivitamin with minerals (Hair,Skin and Nails tablet) 1 tab PO DAILY omeprazole 20 mg PO BID prednisone 20 mg PO BID Do you need a note to return to daycare/school/sports/work: Yes HPI HPI Comments History of Present Illness Details Patient is a 44-year-old female in today for a sick visit. Patient states that she developed sore throat 2 days prior to this appointment. Has use ojbl-hfw-nasdtgj medicine with little relief. Denies prior sick contacts. Denies fevers but reports chills. Is able to tolerate food and drink. Patient is in office strep swab is positive. [facility] Medical History Swelling of lower extremity Mixed anxiety and depressive disorder Obesity (BMI 30.0-34.9) Chronic GERD History of COVID-19 Lumbar degenerative disc disease Plantar fasciitis, bilateral History of dysfunctional uterine bleeding Surgical History Hx of esophagogastroduodenoscopy Hx of colonoscopy History of partial hysterectomy Hx of tubal ligation S/P excision of lipoma Family History Mother Heart valve problem Father Diabetes Paternal Grandmother Diabetes Paternal Grandfather Diabetes Social History Housing: Apartment Alcohol intake: current Alcohol intake frequency: a few times a month Alcohol type: hard liquor Patient Tobacco Use Status: Never used Tobacco e-Cigarette/Vaping Use: Never Used Substance Use Type: Marijuana service: No Current occupational status: employed Current occupation: [employer] employee Cognitive needs: No Hearing needs: No Vision needs: Yes Female Reproductive History Menstrual Age of Menarche: 12 Review of Systems Const All systems reviewed & are unremarkable except as noted in HPI and below Reports chills, Denies fever(s), Denies headache(s) and Reports malaise Eyes Denies blurry vision and Denies diplopia ENT Denies vertigo, Denies dizziness, Denies headache(s) and Reports sore throat Card Denies chest pain and Denies dyspnea Resp Denies dyspnea Neuro Denies vertigo, Denies dizziness and Denies headache(s) Physical Exam Vital Signs: Last Vital Signs Temp 98.9 F 04/11/24 12:24 Pulse 103 H 04/11/24 12:24 BP 110/76 04/11/24 12:24 Pulse Ox 97 04/11/24 12:24 Oxygen Delivery Method Room Air 04/11/24 12:24 BMI result Body Mass Index 35.8 Const Other: Appearance: Alert.? Oriented X3.? No acute distress.? Head: Normocephalic. Eyes: Pupils equal, round and reactive to light.? ENT: Pharynx erythema with exudates. Tonsils +2. Neck: Normal inspection.? Neck supple.? CVS: Normal heart rate and rhythm.? Pulses normal.? Respiratory: No respiratory distress.? Breath sounds normal.? Neuro: Oriented X 3.? Results AMB Rapid Strep AMB Rapid Strep Positive Last Edit by Kosta Fletcher CMA on 04/11/24 13:00 Assessment & Plan Assessment & Plan (1) Strep pharyngitis: Comment: Patient has asked for liquid form amoxicillin, will give 500 mg p.o. b.i.d. for 10 days. Patient will be given prednisone and will be educated to obtain cepacol throat lozenge's. Maintain good hydration. Will be given a work note for 2 days. Code(s): J02.0 - Streptococcal pharyngitis Plan: Take your medications as prescribed. If you were prescribed antibiotics today, it is important that you take your medication to their entirety, do not skip any doses, do not finish them early. Follow-up with your primary care provider this week. Present to the emergency department with new or worsening symptoms. Such as fevers, chills, chest pain, shortness of breath, nausea, vomiting, dizziness, headache, vision changes, lethargy In case of emergency call 911 Orders: Orders AMB Rapid Strep Screen Today Mirna Mendiola PA-C Z13.9 - Encounter for screening, unspecified Medications: New amoxicillin 500 mg (6.25 mL) PO BID 10 days 125 mL 0RF JEANMARIE Sanchez prednisone 20 mg PO BID 20 tabs 0RF JEANMARIE Sanchez Coding Level of Care Code Est Pt Level 3 (67686) Diagnoses Strep pharyngitis J02.0 Time Spent (min) 25
[2024-04-11 12:24] VITALS: BP 110/76; PULSE 103; TEMP 37.2; O2SAT 97; BMI 35.8
== END 2024-04-11 13:01 | disposition home or self-care (01) ==
PROVIDERS: PCP Internal Medicine; Visit Provider Nurse Practitioner Primary Care
DX: J02.0 Streptococcal pharyngitis (principal); J02.9 Acute pharyngitis, unspecified
CPT/HCPCS: 87880; 99213

== ENCOUNTER 2024-05-30 10:29 | Outpatient (AMB) | payer OTHER, SELFPAY ==
[2024-05-30 10:32] VITALS: BP 126/78; BMI 35.8
--- NOTE | 2024-05-30 10:32 | A.OFFVIS_ITS ---
Vital Signs 05/30/24 10:32 Height 5 ft 6 in Weight 222 lb BMI 35.8 BP 126/78 Blood Pressure Location Rt brachial Position Sitting Intake Visit Reasons: NUTRITION COORDINATOR/ PCP Ref/ Other specified soft tissue disorders Intake Note: Pt presents to the office today for a new patient visit for other specified soft tissue disorders. Pt states she has been having bilateral leg pain for a few years now. Pt states she also has swelling in both feet and ankles. Pt states she does wear compression stockings occasionally. Pt states she does get numbness and tingling in her feet. Allergies No Known Allergies Allergy (Verified 05/30/24 10:33) HPI HPI NUTRITION COORDINATOR/ PCP Ref/ Other specified soft tissue disorders: Details: Very pleasant 44-year-old female patient presents for painful varicose veins. Complaints include pain over varicosities, swelling of lower extremities, cramping, fatigue, and heaviness of the lower extremities. It has been affecting there daily activities including walking and working as a tube room cashier at [employer]. It is noted more so in left leg. Patient denies any previous venous surgery or injections. Patient denies any history of DVT/ PE. Patient denies any history of phlebitis. Trial of compression includes - [id number] They now present for vascular evaluation regarding their varicose veins. [facility] Medical History Swelling of lower extremity Mixed anxiety and depressive disorder Obesity (BMI 30.0-34.9) Chronic GERD History of COVID-19 Lumbar degenerative disc disease Plantar fasciitis, bilateral History of dysfunctional uterine bleeding Surgical History Hx of esophagogastroduodenoscopy Hx of colonoscopy History of partial hysterectomy Hx of tubal ligation S/P excision of lipoma Family History Mother Heart valve problem Father Diabetes Paternal Grandmother Diabetes Paternal Grandfather Diabetes Social History Housing: Apartment Alcohol intake: current Alcohol intake frequency: a few times a month Alcohol type: hard liquor Patient Tobacco Use Status: Never used Tobacco e-Cigarette/Vaping Use: Never Used Substance Use Type: Marijuana service: No Current occupational status: employed Current occupation: [employer] employee Cognitive needs: No Hearing needs: No Vision needs: Yes Female Reproductive History Menstrual Age of Menarche: 12 Review of Systems Const Reports as per HPI ENT Reports no additional complaints Card Denies chest pain, Denies chest pain at rest and Denies chest pain with activity Resp Denies chest congestion and Denies cough GI Reports no additional complaints Musc Details: pain over varicosities, aching of lower extremities, swelling, cramping, heaviness and tiredness, itching Denies abnormal gait Skin/Breast Reports pruritus and Denies wounds Neuro Reports no additional complaints and Denies abnormal gait Psych Denies no additional complaints Physical Exam Vital Signs: Last Vital Signs BP 126/78 05/30/24 10:32 BMI result Body Mass Index 35.8 Const General: cooperative, healthy appearing and comfortable Orientation/consciousness: oriented to person, oriented to place and oriented to time Neck Carotids: no bruits Chest Chest palpation & inspection: normal inspection of the chest and normal palpation of entire chest wall Resp Effort & Inspection: normal respiratory effort and able to speak in complete sentences Cardio Rate: regular rate Heart sounds: S1 normal heart sound present and S2 normal heart sound present Peripheral pulses: Peripheral pulses 2+ throughout GI Inspection: Yes normal to inspection Skin Other: +2 edema, CEAP Classification C4 - skin color changes Ep - Etiology Primary As - superficial veins P - reflux General skin exam: dry skin Neuro General: oriented to person, oriented to place and oriented to time Extrem Right lower extremity: full ROM, normal capillary refill and edema Left lower extremity: full ROM, normal capillary refill and edema Psych Mental Status: mental status grossly normal Assessment & Plan Assessment & Plan (1) Varicose veins of left lower extremity with inflammation: Code(s): I83.12 - Varicose veins of left lower extremity with inflammation Category: Medical Plan: In short, the patient has evidence of venous insufficiency. I have discussed the pathophysiology with the patient. In addition I have provided informational material regarding venous disease to the patient. We have discussed conservative measures including compression, elevation, and exercise. I have also provided a handout regarding appropriate use of compression stockings and where to purchase good compression stockings as well. I have taken the liberty of ordering venous insufficiency testing with the patient. They will follow up with me after testing. The patient had an opportunity to ask questions regarding the treatment plan. All questions were answered. Imaging studies, laboratory studies and physical exam results were discussed and reviewed in detail. No major barriers to understanding were identified. The patient expressed understanding and agreement with the above treatment plan. The patient is aware they should contact our office by phone for worsening of the current condition or the appearance of new symptoms. Thank you for allowing me to participate in the vascular care of this patient. If you have any questions or concerns regarding the treatment for the above condition please do not hesitate to contact me. The office telephone contact is [phone]. This note is constructed using voice recognition software. While every effort has been made to ensure accuracy, supply chain systems manager errors may have been in cluded. Thank you for allowing me to participate in the care of your patient. Yours sincerely, Raul Mcnair MD, FACS, R.P.V.I. Orders: Orders US venous duplex LE BI 1 Week I83.12 - Varicose veins of left lower extremity with inflammation Coding Level of Care Code New Pt Level 4 (15455) Diagnoses Varicose veins of left lower extremity with inflammation I83.12
== END 2024-05-30 10:58 | disposition home or self-care (01) ==
PROVIDERS: PCP Internal Medicine; Visit Provider Surgery Vascular Surgery
DX: I83.12 Varicose veins of left lower extremity with inflammation (principal)
CPT/HCPCS: 99204

== ENCOUNTER → 2024-05-30 10:29 | Outpatient (BNVA) | payer OTHER, SELFPAY | PROVIDERS: PCP Internal Medicine; Visit Provider Surgery Vascular Surgery ==

== ENCOUNTER 2024-06-14 08:29 | Outpatient (REF) | payer OTHER, SELFPAY ==
--- NOTE | ~2024-06-14 | US_ITS ---
EXAMINATION: US LOWER EXTREMITY VENOUS (REFLUX EXAM), BILATERAL CLINICAL INFORMATION: Left lower extremity varicose veins. COMPARISON: None. TECHNIQUE: Color flow triplex imaging and compression Doppler was performed to evaluate both the deep and the superficial systems bilaterally. To evaluate the superficial system, the examination was performed in the upright position. Color-flow Doppler ultrasound and compression ultrasound were utilized. In addition, maneuvers were utilized to demonstrate reflux. FINDINGS: 1. DEEP VENOUS ULTRASOUND OF THE RIGHT LOWER EXTREMITY: Common Femoral Vein: Compressible, normal respiratory variation and augmented flow. Femoral Vein: Compressible, normal color flow and augmentation. Popliteal Vein: Compressible, normal augmentation. Deep Reflux: There is no evidence of reflux in the deep system in either the common femoral vein, superficial femoral or the popliteal vein. There is no evidence of a Cid's cyst. 2. SUPERFICIAL ULTRASOUND WITH DOPPLER OF RIGHT LOWER EXTREMITY: GREAT SAPHENOUS VEIN: Saphenofemoral Junction: 0.5 cm; Reflux: 0 ms Proximal Thigh: 0.5 cm; Reflux: 0 ms Mid Thigh: 0.2 cm; Reflux: 0 ms Distal Thigh: 0.4 cm; Reflux: 0 ms At Knee: 0.2 cm; Reflux: 0 ms Proximal Calf: 0.3 cm; Reflux: 0 ms Mid Calf: 0.2 cm; Reflux: 0 ms Distal Calf: 0.2 cm; Reflux: 0 ms DUPLICATED MEDIAL GREAT SAPHENOUS VEIN: Diameter: None imaged Reflux: NA DUPLICATED LATERAL GREAT SAPHENOUS VEIN: Diameter: 0.4 Reflux: 0 ms SMALL SAPHENOUS VEIN: Saphenopopliteal Junction: 0.2 cm; Reflux: 0 ms Proximal: 0.1 cm; Reflux: 0 ms Distal: 0.2 cm; Reflux: 0 ms VEIN OF GIACOMINI: Size: NA Reflux: NA PERFORATORS: Location: None imaged Size: NA Reflux: NA VARICOSITIES: Location: None imaged. Size: NA Reflux: NA 3. DEEP VENOUS ULTRASOUND OF THE LEFT LOWER EXTREMITY: Common Femoral Vein: Compressible, normal respiratory variation and augmented flow. Femoral Vein: Compressible, normal color flow and augmentation. Popliteal Vein: Compressible, normal augmentation. Deep Reflux: There is no evidence of reflux in the deep system in either the common femoral vein, superficial femoral or the popliteal vein. There is no evidence of a Cid's cyst. 4. SUPERFICIAL ULTRASOUND WITH DOPPLER OF LEFT LOWER EXTREMITY: GREAT SAPHENOUS VEIN: Saphenofemoral Junction: 0.7 cm; Reflux: 0 ms Proximal Thigh: 0.6 cm; Reflux: 0 ms Mid Thigh: 0.3 cm; Reflux: 0 ms Distal Thigh: 0.3 cm; Reflux: 0 ms At Knee: 0.3 cm; Reflux: 0 ms Proximal Calf: 0.2 cm; Reflux: 0 ms Mid Calf: 0.2 cm; Reflux: 0 ms Distal Calf: 0.3 cm; Reflux: 0 ms DUPLICATED MEDIAL GREAT SAPHENOUS VEIN: Diameter: None imaged Reflux: NA DUPLICATED LATERAL GREAT SAPHENOUS VEIN: Diameter: 0.3 Reflux: 0 ms SMALL SAPHENOUS VEIN: Saphenopopliteal Junction: 0.2 cm; Reflux: 1280 ms Proximal: 0.2 cm; Reflux: 0 ms Distal: 0.3 cm; Reflux: 0 ms VEIN OF GIACOMINI: Size: NA Reflux: NA PERFORATORS: Location: None imaged Size: NA Reflux: NA VARICOSITIES: Location: None Imaged Size: NA Reflux: NA US/US venous insuf bilat IMPRESSION: Right: No hemodynamically significant reflux is seen in the right greater saphenous vein, small saphenous vein or deep venous system. Left: There is hemodynamically significant reflux of the left lesser saphenous vein. No hemodynamically significant reflux is seen of the left greater saphenous vein or deep venous system. Electronically signed by: Ludin Ward MD 06/15/2024 11:30 PM EDT
== END 2024-06-14 08:30 | disposition home or self-care (01) ==
LOC: HO.US 08:29
PROVIDERS: PCP Internal Medicine; Visit Provider Surgery Vascular Surgery
DX: I83.12 Varicose veins of left lower extremity with inflammation (principal)
CPT/HCPCS: 93970

== ENCOUNTER 2024-07-10 09:34 | Outpatient (AMB) | payer OTHER, SELFPAY ==
[2024-07-10 09:53] VITALS: BP 100/70; PULSE 79; O2SAT 98; BMI 35.5
--- NOTE | 2024-07-10 09:53 | MHC.PC.OV ---
Vital Signs 07/10/24 09:53 Height 5 ft 6 in Weight 220 lb BMI 35.5 BP 100/70 Blood Pressure Location Rt brachial Position Sitting Pulse 79 Pulse Source Pulse Oximeter Pulse Oximetry (%) 98 Oxygen Delivery Method Room Air Intake Visit Reasons: Annual PE Intake Note: Pt is here today for her PE: Last mammogram 07/15/23: Partial hyterectomy Allergies No Known Allergies Allergy (Verified 07/24/24 04:31) Medication List - Last Reconciled 07/10/24 by Mohini Almaguer MD albuterol sulfate 90 mcg/actuation 2 puffs inhalation Q6H PRN bupropion HCl XL (Wellbutrin XL) 150 mg PO QAM multivitamin with minerals (Hair,Skin and Nails tablet) 1 tab PO DAILY omeprazole 20 mg PO BID Tobacco use date assessed: 07/10/24 Dental Screening Dental Screen Date: 07/10/24 Did you have a dental visit in the last 12 months?: Yes Did you have a dental problem in the last 6 months where you did not have access to dental care?: No Was dental information given to patient?: Patient has dentist HPI Annual PE HPI Details 44 year old lady with history of of depression with anxiety, currently controlled on bupropion, sees a therapist as needed, chronic GERD, history of dysfunctional uterine bleeding status post partial hysterectomy done at [facility], here for her physical exam. Has been seen at [facility] for her chronic low back pain due to lumbar degenerative disc disease and has history of plantar fasciitis bilateral, currently asymptomatic. Last mammogram 07/15/23: Partial hyterectomy for dysfunctional uterine bleeding, no longer gets cervical cancer screenings , She gets covid , flu shot at [employer] where she works Had EGD and colonoscopy screening done by Dr. Burkett 06/01/2024 which showed presence of gastritis, normal colon, repeat colonoscopy again in 10 years Has evidence of chronic venous insufficiency, followed by vascular surgery, wears compression stockings when at work [facility] Medical History (Updated 07/24/24 @ 04:46 by Mohini Almaguer MD) Reactive airway disease Swelling of lower extremity Mixed anxiety and depressive disorder Obesity (BMI 30.0-34.9) Chronic GERD History of COVID-19 Lumbar degenerative disc disease Plantar fasciitis, bilateral History of dysfunctional uterine bleeding Surgical History (Updated 07/24/24 @ 04:39 by Mohini Almaguer MD) Hx of esophagogastroduodenoscopy Hx of colonoscopy History of partial hysterectomy Hx of tubal ligation S/P excision of lipoma Family History Mother Heart valve problem Father Diabetes Paternal Grandmother Diabetes Paternal Grandfather Diabetes Social History Housing: Apartment Alcohol intake: current Alcohol intake frequency: a few times a month Alcohol type: hard liquor Patient Tobacco Use Status: Never used Tobacco e-Cigarette/Vaping Use: Never Used Substance Use Type: Marijuana service: No Current occupational status: employed Current occupation: [employer] employee Cognitive needs: No Hearing needs: No Vision needs: Yes Female Reproductive History Menstrual Age of Menarche: 12 Questionnaire PHQ-9 Over the last 2 weeks, how often have you been bothered by any of the following problems? 1. Little interest or pleasure in doing things: not at all 2. Feeling down, depressed, or hopeless: not at all 3. Trouble falling or staying asleep, or sleeping too much: not at all 4. Feeling tired or having little energy: not at all 5. Poor appetite or overeating: not at all 6. Feeling bad about yourself - or that you are a failure or have let yourself or your family down: not at all 7. Trouble concentrating on things, such as reading the newspaper or watching television: not at all 8. Moving or speaking so slowly that other people could have noticed. Or the opposite - being so fidgety or restless that you have been moving around a lot more than usual: not at all 9. Thoughts that you would be better off or of hurting yourself in some way: not at all Total score: 0 Depression Screening Interpretation: Negative (Controlled on bupropion) Depression Screening Done: Yes [id number] - PHQ-9 Billing: Yes Source: Developed by Drs. Dusty Calle, Belkys Yoo, Moy Pugh and colleagues, with an educational michael from [employer]. Thrive Questionnaire Date Thrive assessed: 07/07/24 I am a: Patient What is your living situation today?: I have a steady place to live Within the past 12 months, did the food you bought not last and you didn't have the money to get more?: Never true Within the past 12 months, did you worry whether your food would run out before you got money to buy more?: Never true Do you have trouble paying for medicines?: No Do you have trouble getting transportation to medical appointments?: No Do you have trouble paying your heating and electricity bill?: No Do you have trouble taking care of your child, family member or friend?: No Do you have trouble with day-to-day activities such as bathing, preparing meals, shopping, managing finances, etc.?: No Are you interested in more education?: No Please select the resources that you would like help with: None Currently or been in a relationship where the following occur: No concerns reported THRIVE Score: 0 AUDIT C Alcohol Use Questionnaire (AUDIT-C) 1. How often do you have a drink containing alcohol?: Monthly or less 2. How many drinks containing alcohol do you have on a typical day when you are drinking?: 1 or 2 3. How often do you have six or more drinks on one occasion?: Less than monthly Total Score: 2 JANAE-7 AMB Questionnaire JANAE-7 Date JANAE - 7 assessed: 07/10/24 Feeling nervous, anxious, or on edge: 0 = Not at all Not being able to stop or control worryin = Several days Worrying too much about different things: 0 = Not at all Trouble relaxin = Not at all Being so restless that it is hard to sit still: 0 = Not at all Becoming easily annoyed or irritable: 1 = Several days Feeling afraid as if something awful might happen: 0 = Not at all Total JANAE-7 score (0-4 normal; 5-9 mild; 10-14 moderate; 15-21 severe): 2 Source: Developed by Drs. Dusty Calle, Belkys Yoo, Moy Pugh and colleagues, with an educational michael from [employer]. JANAE-7 Assessment Billing JANAE-7 Assessment Tool: JANAE-7 Assessment 79331 Review of Systems Const Reports as per HPI Eyes Details: Sees Dr. Livingston for routine eye exam Reports no additional complaints ENT Reports no additional complaints Card Denies chest pain, Denies chest pain at rest and Denies chest pain with activity Resp Denies chest congestion, Denies cough and Reports wheezing (Occasional on increased exertion ) GI Reports no additional complaints Reports no additional complaints Musc Details: pain over varicosities, aching of lower extremities, swelling, cramping, heaviness and tiredness, itching Denies abnormal gait Skin/Breast Denies wounds Neuro Reports no additional complaints and Denies abnormal gait Psych Denies no additional complaints Endo Reports no additional complaints Jason/Lymph Reports no additional complaints Aller/Immun Reports seasonal rhinorrhea and Reports wheezing (Occasional on increased exertion ) Physical exam (Primary Care) Vital Signs: Last Vital Signs Pulse 79 07/10/24 09:53 BP 100/70 07/10/24 09:53 Pulse Ox 98 07/10/24 09:53 Oxygen Delivery Method Room Air 07/10/24 09:53 BMI result Body Mass Index 35.5 Tobacco/Smoking Status: Tobacco use Status Tobacco use date assessed 07/10/24 07/10/24 09:55 Patient Tobacco Use Status Never used Tobacco 07/10/24 09:54 e-Cigarette/Vaping Use Never Used 07/10/24 09:54 PHQ-9: PHQ-9 Score PHQ-9: Total score 0 07/24/24 00:21 Depression Screening Interpretation: Negative (Controlled on bupropion) Thrive Assessment: Date of Thrive Assessment Date Thrive assessed 07/07/24 07/10/24 09:54 Currently or been in a relationship where the following occur: No concerns reported Advance Care Planning discussion: Completed/Scanned Date of discussion: 07/10/24 Who was present: Patient Forms completed: Health Care Proxy Time spent: 16-45 minutes Actual minutes spent: 16 Const General: comfortable, no acute distress and alert Nutritional Appearance: obese Orientation/consciousness: patient oriented x3 HENMT Head: Yes normocephalic Ears: external ears normal General nose exam: Normal external nose present and No nasal discharge present Face and sinus: Yes face symmetric Mouth: Normal oral and palatal mucosa present and moist mucous membranes Eyes General: appearance normal, both eyes and all related structures Neck Neck: Yes full ROM, Yes no lymphadenopathy and Yes supple Thyroid: Thyroid normal Chest Chest palpation & inspection: normal inspection of the chest and normal palpation of entire chest wall Breast/axilla inspection: normal inspection of the breasts Breast/axilla palpation: normal palpation of the breasts Resp Effort & Inspection: normal respiratory effort and able to speak in complete sentences Auscultation: clear to auscultation bilaterally Cardio Rate: regular rate Rhythm: regular rhythm Heart sounds: S1 normal heart sound present and S2 normal heart sound present GI Palpation (GI): Soft to palpation, nontender, no guarding and no masses Auscultation: normal bowel sounds General: Yes no CVA tenderness Back/Spine/Pelvis Back: no CVA tenderness and No back tenderness Skin Other: Superficial varicosities noted in both lower extremity Neuro General: patient oriented x3, gait normal, moves all extremities, Normal light touch and pain sensation, no focal motor deficits and CN's II-XI intact bilaterally Cognition (Neuro): normal cognition Gait exam (Neuro): Normal gait present Motor exam (neuro): 5/5 motor strength present throughout Extrem General: Yes normal to inspection, Yes full ROM, Yes no joint enlargement and Yes normal gait Psych Appearance: grossly normal and well kempt Mental Status: mental status grossly normal Speech and movement: Normal speech and movement present Affect: normal affect Attitude: cooperative Thought process: Normal thought process present Thought content: Normal thought content present Results Reviewed Results Reviewed: Name: Carmel Simons Age/Sex: 43/F : 1980 Unit#: [id number] Attend Dr: Mohini Almaguer MD Re11/15/23 Status: DEP REF Location: [facility] Disch: SPEC : [id number] KRAIG: 11/15/23 STATUS: COMP REQ : [id number] RECD: 11/15/[address]: Mohini Almaguer MD COMP: 11/15/23 ENTERED: 11/15/[address]: ORDERED: CBC Auto Diff Test Result Flag Reference WBC 8.8 4.8-10.8 X10*3/uL RBC 4.96 4.20-5.50 X10*6/uL HGB 15.2 12.0-16.0 g/dl HCT 45.3 37.0-47.0 % MCV 91.3 80.0-98.0 fL MCH 30.6 27.0-33.0 pg MCHC 33.6 31.0-35.0 g/dl RDW 11.9 11.0-16.0 % PLT 296 160-400 X10*3/uL MPV 10.3 9.4-12.3 fL Neut Pct Auto 64.5 45-73 % ImGran Pct Auto 0.7 H 0.0-0.4 % Lymp Pct Auto 24.0 20-40 % [place] Pct Auto 8.1 2-11 % Eos Pct Auto 2.1 0-4 % Baso Pct Auto 0.6 0-2 % NRBC Pct Auto 0.0 0.0-0.2 /100WBC ANC Neut Abs # 5.7 2.0-8.3 x10*3/uL ImGran Abs Auto 0.06 H 0.00-0.03 X10*3/uL Lymph Abs Auto 2.1 1.2-4.9 X10*3/uL [place] Abs Auto 0.7 0.1-1.2 X10*3/uL Eos Abs Auto 0.2 0.0-0.4 X10*3/uL Baso Abs Auto 0.1 0.0-0.2 X10*3/uL NRBC Abs Auto 0.000 0.0-0.012 X10*3/uL Name: Carmel Simons Age/Sex: 43/F : 1980 Unit#: [id number] Attend Dr: Mohini Almaguer MD Re11/15/23 Status: DEP REF Location: [facility] Disch: SPEC : [id number] KRAIG: 11/15/23 STATUS: COMP REQ : [id number] RECD: 11/15/23-[address]: Mohini Almaguer MD COMP: 11/15/23-1417 ENTERED: 11/15/23-[address]: ORDERED: CMP Fast, Lipid Panel, Vitamin D 25-OH, TSH Rflx Test Result Flag Reference Sodium 138 135-145 mmol/L Potassium 4.3 3.3-5.1 mmol/L CL 105 96-108 mmol/L CO2 26 22-29 mmol/L Gap 11 L 12-20 BUN 11 9-16 mg/dL Creat 0.83 0.5-1.4 mg/dL EGFR > 60 NOTE: For -[place] individuals, multiply the result by 1.210. Chronic Kidney Disease: Estimated GFR < 60 mL/min/1.73m2 Severe Kidney Disease: Estimated GFR < 15 mL/min/1.73m2 FBS 94 60-99 mg/dL CA 9.2 8.4-10.2 mg/dL Total Bili 0.4 0.0-1.0 mg/dL AST (GOT) 16 5-31 U/L ALT (GPT) 18 0-31 U/L Protein, Total 7.8 6.5-8.0 g/dL Alb 4.2 3.5-5.0 g/dL Triglyceride 62 <150 mg/dL Desirable Triglyceride: less than 150 mg/dL Borderline High Triglyceride 150-199 mg/dL High Triglyceride: 200-499 mg/dL Very High Triglyceride: greater than or equal to 5OO mg/dL Cholesterol 189 <200 mg/dL Desirable Cholesterol: less than 200 mg/dL Borderline High Cholesterol: 200-239 mg/dL High Cholesterol: greater than 239 mg/dL LDL Calculated 124 H <100 mg/dL Desirable LDL: less than 100 mg/dL Near Optimal/Above Optimal LDL: 110-129 mg/dL Borderline High LDL: 130-159 mg/dL High LDL: 160-189 mg/dL Very High LDL: greater than or equal to 190 mg/dL HDL 53 >40 mg/dL Desirable HDL: greater than 40 mg/dL Note: This HDL assay may give artificially low results in patients with liver disease. Alk Phos 109 39-117 U/L Vit D 25-OH Tot 45.1 >30 ng/mL Health Based Reference Values* < 20 ng/mL Deficient 20-30 ng/mL Insufficient > 30 ng/mL Sufficient *aCra BOWMAN. N Engl J Med. 2007;357:266-280 Care must be taken in interpreting Vitamin D results from different laboratories and methodologies. Published data demonstrated that results from patients undergoing hemodialysis may show a negative bias when tested with various automated 25-OH vitamin D assays when compared to LC-MS/MS. When testing samples from patients whose predominant form of Vitamin D is Vitamin D2, such as patients receiving Vitamin D2 supplementation, results that are subtherapeutic should be confirmed with another method such as LC-MS/MS. TSH 0.60 0.32-4.0 uIU/mL Coding Level of Care Code Est Pt Prev Care 40-64y(26858) Diagnoses Annual visit for general adult medical examination with abnormal findings Z00.01 Chronic GERD K21.9 Plantar fasciitis, bilateral M72.2 Mixed anxiety and depressive disorder F41.8 Obesity (BMI 30.0-34.9) E66.9 Varicose veins of left lower extremity with inflammation I83.12 Advanced directives, counseling/discussion Z71.89 Mild intermittent reactive airway disease without complication J45.20 Asthma severity: mild Asthma persistence: intermittent Asthma complication type: uncomplicated Additional Codes JANAE-7 Assessment Billing - JANAE-7 Assessment Tool: JANAE-7 Assessment 00156 ([id number]) Vital Signs *Quality* - Advance Care Planning discussion: Completed/Scanned ([id number]) Vital Signs *Quality* - Time spent: 16-45 minutes ([id number])
== END 2024-07-10 10:35 | disposition home or self-care (01) ==
PROVIDERS: PCP Internal Medicine; Visit Provider Internal Medicine
DX: Z00.00 Encounter for general adult medical examination without abnormal findings (principal); K21.9 Gastro-esophageal reflux disease without esophagitis; M72.2 Plantar fascial fibromatosis; F41.8 Other specified anxiety disorders; E66.9 Obesity, unspecified; I83.12 Varicose veins of left lower extremity with inflammation; J45.20 Mild intermittent asthma, uncomplicated

== ENCOUNTER → 2024-07-10 09:34 | Outpatient (BNVA) | payer OTHER, SELFPAY | PROVIDERS: PCP Internal Medicine; Visit Provider Internal Medicine | DX: Z00.01 Encounter for general adult medical examination with abnormal findings (principal); K21.9 Gastro-esophageal reflux disease without esophagitis; M72.2 Plantar fascial fibromatosis; F41.8 Other specified anxiety disorders; E66.9 Obesity, unspecified; I83.12 Varicose veins of left lower extremity with inflammation; J45.20 Mild intermittent asthma, uncomplicated; Z71.89 Other specified counseling | CPT/HCPCS: 96127 ==

== ENCOUNTER 2024-07-11 12:39 | Outpatient (AMB) | payer OTHER, SELFPAY ==
--- NOTE | 2024-07-11 12:46 | A.OFFVIS_ITS ---
Vital Signs 07/11/24 12:48 Height 5 ft 6 in Weight 222 lb BMI 35.8 Intake Visit Reasons: bilateral lower extremity venous insufficiency cathy Intake Note: follow up US 06/14/24 for LE swelling and pain, Left LE worse than the Right LE. Pt does work on her feet and wears compression. Accompanied by: Self / Same As Patient Allergies No Known Allergies Allergy (Verified 07/11/24 12:49) HPI HPI bilateral lower extremity venous insufficiency cathy: Details: Very pleasant 44-year-old female presents for follow-up regarding lower extremity pain. It has been more of a persistent pain. Upon further discussion with her she reports that it is more of a pain on the dorsum of the foot. She now presents for routine follow-up with venous insufficiency testing. She has had no interval issues. Pain has been persistent and not alleviated with any conservative measures. [facility] Medical History Swelling of lower extremity Mixed anxiety and depressive disorder Obesity (BMI 30.0-34.9) Chronic GERD History of COVID-19 Lumbar degenerative disc disease Plantar fasciitis, bilateral History of dysfunctional uterine bleeding Surgical History Hx of esophagogastroduodenoscopy Hx of colonoscopy History of partial hysterectomy Hx of tubal ligation S/P excision of lipoma Family History Mother Heart valve problem Father Diabetes Paternal Grandmother Diabetes Paternal Grandfather Diabetes Social History Housing: Apartment Alcohol intake: current Alcohol intake frequency: a few times a month Alcohol type: hard liquor Patient Tobacco Use Status: Never used Tobacco e-Cigarette/Vaping Use: Never Used Substance Use Type: Marijuana service: No Current occupational status: employed Current occupation: [employer] employee Cognitive needs: No Hearing needs: No Vision needs: Yes Female Reproductive History Menstrual Age of Menarche: 12 Review of Systems Const All systems reviewed & are unremarkable except as noted in HPI and below Reports no additional complaints ENT Reports Normal hearing present Card Denies chest pain, Denies chest pain at rest, Denies chest pain with activity and Denies pedal edema Resp Denies cough GI Denies abdominal pain Musc Denies abnormal gait, Denies muscle cramps and Denies radiating pain into limb Skin/Breast Denies skin ulcer and Denies wounds Neuro Reports Normal hearing present and Denies abnormal gait Psych Reports no additional complaints Physical Exam Vital Signs: BMI result Body Mass Index 35.8 Const General: cooperative, healthy appearing and comfortable Orientation/consciousness: oriented to person, oriented to place and oriented to time HEENT Head: Yes normal to inspection Neck Neck: Yes normal visual inspection Carotids: no bruits Chest Chest palpation & inspection: normal inspection of the chest Resp Effort & Inspection: normal respiratory effort and able to speak in complete sentences Auscultation: clear to auscultation bilaterally, no crackles, no rales, no rhonchi and no wheezes Cardio Rate: regular rate Rhythm: regular rhythm Heart sounds: S1 normal heart sound present and S2 normal heart sound present Bruits: no carotid bruits Peripheral pulses: Peripheral pulses 2+ throughout GI Inspection: Yes normal to inspection Skin Wounds: no wounds Hair: normal Neuro General: oriented to person, oriented to place and oriented to time Cranial nerves: Yes CN's II-XII intact bilaterally and Yes Normal hearing present Cognition (Neuro): normal cognition Motor exam (neuro): 5/5 motor strength present throughout Extrem Other: venous exam: No significant superficial varicosities or spider telangiectasias, minimal edema General: No clubbing, No cyanosis and No edema Psych Appearance: grossly normal Mental Status: mental status grossly normal Speech and movement: Normal speech and movement present Results Reviewed Results Reviewed: Brief summary of venous insufficiency testing is as follows: right great saphenous vein: negative right small saphenous vein: negative right accessory vein: none present left great saphenous vein: negative left small saphenous vein: negative left accessory vein: none present Please note there is no evidence of any venous aneurysms or significant tortuosity Assessment & Plan Assessment & Plan (1) Lower extremity pain: Code(s): M79.606 - Pain in leg, unspecified Category: Medical Qualifiers: Laterality: bilateral Qualified Code(s): M79.604 - Pain in right leg; M79.605 - Pain in left leg Plan: In short patient has lower extremity pain. It does not appear to be vascular in nature as she does have palpable arterial pulses in venous insufficiency testing has shown to be negative. She has seen [facility] in the past. She may benefit from a pain management evaluation. We will help coordinate that. She will follow up with us on an as-needed basis. Thank you for allowing us to participate in the care of this very nice woman. If there are any questions or concerns please do not hesitate to contact us. Orders: Referrals Pain Management Referral M54.9 - Dorsalgia, unspecified Coding Level of Care Code Est Pt Level 4 (64787) Diagnoses Pain in both lower extremities M79.604; M79.605 Laterality: bilateral
[2024-07-11 12:48] VITALS: BMI 35.8
== END 2024-07-11 13:26 | disposition home or self-care (01) ==
PROVIDERS: PCP Internal Medicine; Visit Provider Surgery Vascular Surgery
DX: M79.604 Pain in right leg (principal); M79.605 Pain in left leg
CPT/HCPCS: 99214

== ENCOUNTER → 2024-07-11 12:39 | Outpatient (BNVA) | payer OTHER, SELFPAY | PROVIDERS: PCP Internal Medicine; Visit Provider Surgery Vascular Surgery ==

== ENCOUNTER 2024-07-18 09:20 | Outpatient (AMB) | payer OTHER, SELFPAY ==
--- NOTE | 2024-07-18 09:24 | MHC.OFFVIS ---
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 She was seen by Dr. Mcnair and was told lower extremity pain did not appear to be vascular in nature, has good palpable arterial pulses and negative venous insufficiency testing. Patient has been seen by [facility] and Dr. Lamb for injections in the past and completed PT at [facility] 6[facility]8 months ago with partial improvement. Patient denies any recent trauma, injury or falls but reports remote injury at grade 5 when a chair was pulled out from under her and she suffered L3-L4 fractures at that time per patient. She also developed left leg pain during initial which progressed with imbalance and weakness as well as formation of lipoma in her lower spine which was removed. Patient reports she had 2 more uncomplicated pregnancies since that time. Today, her back pain is localized to lower spine with radiation in to her left buttock and left lower extremity, more posteriorly and into her feet with associated shooting leg pain and throbbing, dull aching in the dorsal aspect of left foot. She also reports intermittent right leg pain. Patient states axial low back pain is more troublesome than leg pain. 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 Pain affects her daily activities and functioning, mobility, work, sleep, mood, and social interactions. Patient is most severe at evenings which she rates 7-10/10 and least severe rated at 4/10 with rest. Patient completed spine imaging at [facility] and [facility], unfortunately these reports and images are not available for review today. Denies any fever or chills, abdominal or groin pain, bladder or bowel dysfunction or saddle anesthesia. Location: Chronic back pain and bilateral lower extremity pain, worse on the left Duration: Chronic pain for many years Characteristics of symptom or complaint: Dull, aching, throbbing, burning, shooting, sharp Aggravating or associated factors: Any movement, bending, lifting, ROM, cold weather Relieving factors: Advil, Tylenol, heat therapy, activity modifications Treatment: Back injections at [facility] and Dr. Lamb, PT at [facility] Medical History Swelling of lower extremity Mixed anxiety and depressive disorder Obesity (BMI 30.0-34.9) Chronic GERD History of COVID-19 Lumbar degenerative disc disease Plantar fasciitis, bilateral History of dysfunctional uterine bleeding Surgical History Hx of esophagogastroduodenoscopy Hx of colonoscopy History of partial hysterectomy Hx of tubal ligation S/P excision of lipoma Family History Mother Heart valve problem Father Diabetes Paternal Grandmother Diabetes Paternal Grandfather Diabetes Social History Housing: Apartment Alcohol intake: current Alcohol intake frequency: a few times a month Alcohol type: hard liquor Patient Tobacco Use Status: Never used Tobacco e-Cigarette/Vaping Use: Never Used Substance Use Type: Marijuana service: No Current occupational status: employed Current occupation: [employer] employee Cognitive needs: No Hearing needs: No Vision needs: Yes Female Reproductive History Menstrual Age of Menarche: 12 Review of Systems Const All systems reviewed & are unremarkable except as noted in HPI and below Physical Exam Vital Signs: Last Vital Signs Pulse 73 07/18/24 09:29 BP 129/74 07/18/24 09:29 Pulse Ox 97 07/18/24 09:29 Oxygen Delivery Method Room Air 07/18/24 09:29 BMI result Body Mass Index 34.6 General: Appears afebrile. Alert and oriented. Mood and affect appropriate. Follows and participates in conversation appropriately. Respiratory effort is unlabored. No cough. Able to transition from sit to stand unassisted. Ambulates with bilaterally normal heel strike and toe off, reports LLE weakness with pain. General: Yes no CVA tenderness Back/Spine/Pelvis Other: Patient is able to walk and stand on heels and tip toes with no difficulties demonstrating good motor tone. No limping. Can flex forward to 65-70 degrees and extend to 5-10 degrees before experiencing lumbar pain. Demonstrates 5/5 right and 4/5 left strength of quadriceps bilaterally as well as flexion/dorsiflexion of bilateral feet against resistance. 2+ pedal pulses bilaterally. Seated straight leg rise with dorsiflexion negative bilaterally. Diminished patellar and achilles reflexes bilaterally. Facet loading test positive bilaterally. Marium sign positive bilaterally, Soy?s and Stinchfield tests reproduce lateral hip pain but not back pain. No groin pain with I/E hip rotations. Valsalva maneuver negative. Back: no CVA tenderness Cervical Spine: cervical ROM normal, cervical muscular tenderness, Cervical spine tenderness and No step off deformity Thoracic/Lumbar Spine: thoracic and lumbar spine normal to inspection, No Thoracic/lumbar spine scar(s), Lasegue's sign negative, straight leg raise negative bilaterally, pain with thoraco-lumbar ROM, paraspinal muscle tenderness, thoraco-lumbar ROM limited, No thoracic spinal tenderness and lumbar spinal tenderness at L4 and at L5 Sacroiliac joints: bilaterally tender to palpation Extrem General: Yes capillary refill normal, Yes no clubbing, cyanosis or edema and Yes no calf tenderness Results Reviewed Results Reviewed: XR foot Bilateral min 3V 02/16/24 IMPRESSION: 1. Mild degenerative changes bilateral first metatarsophalangeal joints. 2. Small bilateral calcaneal spurs. 3. Sclerotic density overlying the right third metatarsal head may represent a bone island. 4. Small ossicles adjacent to the tarsal navicular, along the medial aspect of the foot, likely accessory ossicles, but correlation with clinical exam recommended for confirmation. US venous insuf bilat 06/14/24 IMPRESSION: Right: No hemodynamically significant reflux is seen in the right greater saphenous vein, small saphenous vein or deep venous system. Left: There is hemodynamically significant reflux of the left lesser saphenous vein. No hemodynamically significant reflux is seen of the left greater saphenous vein or deep venous system. Assessment & Plan Assessment & Plan (1) Lumbar degenerative disc disease: Comment: sees [facility] Code(s): M51.36 - Other intervertebral disc degeneration, lumbar region Category: Medical (2) Chronic low back pain: Code(s): M54.50 - Low back pain, unspecified; G89.29 - Other chronic pain Category: Medical (3) Lumbar radiculopathy: Code(s): M54.16 - Radiculopathy, lumbar region Category: Medical Plan Discussed interventional treatments options for both radicular and axial low back pain. Initially will obtain full pertinent and past medical records from [facility] and [facility] for past spine imaging and injections. Once reviewed, will consider to update her lumbosacral imaging prior to interventional treatments. Scripts provided for gabapentin 300 mg at bedtime and lidocaine patches. Side effects and precautions were discussed with patient. All questions and concerns have been answered and patient agreed with the plan. Follow up for medication/old records review and sooner as needed. Medications: New gabapentin 300 mg PO BEDTIME 30 days 30 caps 0RF pain G89.29 - Other chronic pain, M51.36 - Other intervertebral disc degeneration, lumbar region, M54.16 - Radiculopathy, lumbar region, M54.50 - Low back pain, unspecified lidocaine 5% 1 patch topical DAILY 30 days 30 ea 0RF pain G89.29 - Other chronic pain, M51.36 - Other intervertebral disc degeneration, lumbar region, M54.50 - Low back pain, unspecified Coding Level of Care Code New Pt Level 4 (70925) Complex EM visit Add On G2211 Diagnoses Lumbar degenerative disc disease M51.36 Chronic low back pain M54.50; G89.29 Lumbar radiculopathy M54.16
[2024-07-18 09:29] VITALS: BP 129/74; PULSE 73; O2SAT 97; BMI 34.6
== END 2024-07-18 10:08 | disposition home or self-care (01) ==
PROVIDERS: PCP Internal Medicine; Referring Provider Surgery Vascular Surgery; Visit Provider Nurse Practitioner Family
DX: M51.360 Other intervertebral disc degeneration, lumbar region with discogenic back pain only (principal); G89.29 Other chronic pain; M54.16 Radiculopathy, lumbar region
CPT/HCPCS: 99204; G2211

== ENCOUNTER → 2024-07-18 09:20 | Outpatient (BNVA) | payer OTHER, SELFPAY | PROVIDERS: PCP Internal Medicine; Referring Provider Surgery Vascular Surgery; Visit Provider Nurse Practitioner Family ==

== ENCOUNTER 2024-07-21 09:51 | Outpatient (REF) | payer OTHER, SELFPAY ==
--- NOTE | ~2024-07-21 | MM_ITS ---
EXAMINATION: MM SCREENING DIGITAL BREAST TOMOSYNTHESIS, BILATERAL CLINICAL INFORMATION: Screening. Asymptomatic. COMPARISON: Mammography: Comparison is made with available priors TECHNIQUE: Digital breast mammography with tomosynthesis is performed in both the craniocaudal and mediolateral oblique views along with computer-aided detection (CAD). FINDINGS: The breasts are heterogeneously dense, which may obscure small masses (ACR BI-RADS breast composition Category c). There are no significant masses, abnormal calcifications, or other abnormalities. MM/MM tomosynthesis screening BI IMPRESSION: No mammographic evidence of malignancy. ASSESSMENT: BI-RADS BI-RADS 1 - Negative RECOMMENDATION: Routine annual mammography screening. 1 year F/U This examination should not preclude the clinical evaluation of a suspicious palpable abnormality. This patient's information was entered into a reminder system with a target due date for their next mammogram. Electronically signed by: Suzy Stuart DO 08/02/2024 08:15 AM EDT
== END 2024-07-21 09:52 | disposition home or self-care (01) ==
LOC: HO.MAMMO 09:51
PROVIDERS: PCP Internal Medicine; Visit Provider Internal Medicine
DX: Z12.31 Encounter for screening mammogram for malignant neoplasm of breast (principal)
CPT/HCPCS: 77063; 77067

== ENCOUNTER → 2024-07-21 10:00 | Outpatient (BNV) | payer OTHER, SELFPAY | PROVIDERS: PCP Internal Medicine; Visit Provider Internal Medicine | DX: Z12.31 Encounter for screening mammogram for malignant neoplasm of breast (principal) | CPT/HCPCS: 77063; 77067 ==

== ENCOUNTER 2024-10-09 19:11 | Emergency (ER) | payer OTHER, SELFPAY ==
[2024-10-09 19:47] VITALS: BP 124/68; PULSE 102; RESP 20; TEMP 36.8; O2SAT 97; BMI 35.0
--- NOTE | 2024-10-09 19:52 | ED_ITS ---
HPI - General Adult General Chief complaint: Nausea/Vomiting/Diarrhea Stated complaint: vomiting Time Seen by Provider: 10/10/24 00:43 Source: patient Mode of arrival: ambulatory Limitations: no limitations History of Present Illness ED Provider: Dr. Bertrand Black HPI narrative: 44-year-old female with a history of GERD, anxiety who presents emergency department for evaluation of nausea vomiting and diarrhea which started yesterday morning. Patient states that she had at least 4 episodes of emesis with no blood in the emesis. She states initially she vomited up last night's dinner and then was vomiting up bile. Patient states she was had loose, nonbloody diarrheal stools every 10-15 minutes. Patient was not able to eat or drink secondary to her symptoms. She states that she was feeling weak, dizzy and lightheaded therefore she came to the emergency department for evaluation. She denied fever but did have chills. She denied rhinorrhea, sore throat, cough, chest pain or shortness of breath. She denied myalgias arthralgias. Patient was not been on antibiotics recently. She was not traveled outside of the country. She has not been around any sick contacts she was aware of. Related Data Home Medications ?Medication ?Instructions ?Recorded ?Confirmed multivitamin with minerals 1 tab PO DAILY 07/07/23 07/10/24 (Hair,Skin and Nails tablet) omeprazole 20 mg tablet,delayed 20 mg PO BID 07/07/23 07/10/24 release Previous Rx's ?Medication ?Instructions ?Recorded bupropion HCl 150 mg 24 hr tablet, 150 mg PO QAM #90 tabs 07/07/23 extended release (Wellbutrin XL) albuterol sulfate 90 mcg/actuation 2 puff inhalation Q6H PRN 07/10/24 aerosol inhaler shortness of breath or wheezing #6.7 grams gabapentin 300 mg capsule 300 mg PO BEDTIME pain 30 days #30 07/18/24 caps lidocaine 5 % topical patch 1 patch topical DAILY pain 30 days 07/18/24 #30 ea ondansetron 4 mg disintegrating 4 mg PO Q6-8H PRN nausea and 10/10/24 tablet vomiting #14 tabs Allergies Allergy/AdvReac Type Severity Reaction Status Date / Time No Known Allergies Allergy Verified 10/09/24 19:49 Review of Systems 2 Review of Systems: Yes all other systems are reviewed and are negative [facility] Past Medical History [facility] Narrative: Social history: She denies tobacco use. She rarely drinks alcohol. She denies drug use. Medical History (Updated 10/10/24 @ 01:38 by Bertrand Black MD) Reactive airway disease Swelling of lower extremity Mixed anxiety and depressive disorder Obesity (BMI 30.0-34.9) Chronic GERD History of COVID-19 Lumbar degenerative disc disease Plantar fasciitis, bilateral History of dysfunctional uterine bleeding Surgical History (Updated 07/24/24 @ 04:39 by Mohini Almaguer MD) Hx of esophagogastroduodenoscopy Hx of colonoscopy History of partial hysterectomy Hx of tubal ligation S/P excision of lipoma Family History Family History Mother Heart valve problem Father Diabetes Paternal Grandmother Diabetes Paternal Grandfather Diabetes Social History Social History Housing: Apartment Alcohol intake: current Alcohol intake frequency: holidays/special occasions only Alcohol type: hard liquor Patient Tobacco Use Status: Never used Tobacco Smoked in Last 30 Days: No e-Cigarette/Vaping Use: Never Used Use of substances other than those prescribed or required for medical reasons: No Substance Use Type: Marijuana Advance Directives: No Advance Directives Information Provided: Yes Do you have a plan to hurt others: No Plan service: No Current occupational status: employed Current occupation: [employer] employee Cognitive needs: No Hearing needs: No Vision needs: Yes Physical Exam ED Vital Signs: Vital Signs - 24 hr 10/09/24 19:47 10/10/24 00:18 10/10/24 02:00 Temperature 98.3 F 99.3 F 98.7 F Pulse Rate 102 H 91 86 Respiratory Rate 20 18 18 Blood Pressure 124/68 127/68 113/54 L Pulse Oximetry 97 98 99 Oxygen Delivery Method Room Air Room Air Room Air BMI result Body Mass Index 35.0 Vital signs revealed an elevated heart rate of 102 otherwise unremarkable Exam: General: Awake, alert in no distress Head: Normocephalic, atraumatic EENT: PERRL, Lids normal, sclera normal, conjunctiva normal, nose normal , ears normal, throat without erythema or exudates Neck: Supple, no adenopathy Lung: breath sounds symmetric, no wheezing, rales or rhonchi Chest: symmetric movement, nontender Heart: regular rate and rhythm, normal S1, S2 no murmurs or rubs Abdomen: soft, non-tender, nondistended, normal bowel sounds Back: no vertebral tenderness, no CVAT Extremities: no deformities, moves all extremities symmetrically Neuro: Awake, alert, oriented, normal speech, cranial nerves intact, moves all extremities symmetrically Psych: Pleasant, cooperative Course Course Course Narrative: RME, this is a rapid medical exam performed by Kaiden Garner please refer to primary provider for complete H&P- 44-year-old female presents for evaluation nausea, vomiting, that started yesterday. No recent travel or antibiotic use. Plan for labs, urinalysis Medications Administered Discontinued Medications Generic Name Dose Route Start Last Admin Trade Name Freq PRN Reason Stop Dose Admin Sodium Chloride 1,000 mls @ 999 mls/hr 10/10/24 01:29 10/10/24 01:48 Ns IV 10/10/24 02:29 999 mls/hr .Q1H1M STA Administration Loperamide HCl 4 mg 10/10/24 01:29 10/10/24 01:53 Loperamide Hcl 2 Mg Capsule PO 10/10/24 01:30 4 mg ONCE ONE Administration Ondansetron HCl 4 mg 10/09/24 19:49 10/09/24 19:55 Ondansetron Odt 4 Mg Tab.Rapdis TRANSLINGU 10/09/24 19:50 4 mg ONCE ONE Administration Ondansetron HCl 4 mg 10/10/24 01:29 10/10/24 01:48 Ondansetron Hcl 4 Mg/2 Ml Vial IVPUSH 10/10/24 01:30 4 mg ONCE ONE Administration Medical Decision Making Medical Decision Making MDM Narrative: 44-year-old female with a history of GERD, anxiety who presents emergency department for evaluation of nausea vomiting and diarrhea which started yesterday morning. Patient has had 4 episodes vomiting and multiple episodes of loose, watery, nonbloody diarrhea with very little food and fluid intake. Patient was feeling lightheaded, dizzy and weak. Vital signs were normal. Physical examination was unremarkable. Differential diagnosis: ?Includes but is not limited to viral syndrome, gastroenteritis, COVID-19, influenza, RSV Course: 01:33 Patient was initially given Zofran 4 mg ODT with improvement of her nausea, she was able to drink some fluid but are nausea has now come back. She has had no further episodes of vomiting since being in the emergency department and no further episodes of diarrhea. The patient's laboratory evaluation [place] [address] and low bicarb of 19 which is consistent with her symptoms of vomiting and diarrhea. Patient most likely has viral gastroenteritis as the cause of her symptoms. Patient was ordered to get normal saline 1 L IV and Zofran 4 mg IV. 03:00 Patient was feeling significantly better. She was able to drink some fluid. The patient was discharged home with prescription for Zofran 4 mg ODT every 6-8 hours as needed for nausea and vomiting. She was also advised to take Imodium for diarrhea. She was also advised to stay on a HUSSEIN diet for the next 24 hours. She was also given a work note. She was given printed and verbal instructions and discharged home. Admission/Observation Consideration of admission/observation: Escalation of care including admission/observation considered (Yes) Lab Data My independent interpretation patient's laboratory evaluation is as follows: WBC elevated 16,900 with 88 neutrophils and 7 bands. Glucose was elevated 123. Bicarb was low 19. LFTs were normal. Lipase was normal. COVID-19, influenza and RSV were negative. Quantitative beta-hCG was negative. 10/09/24 20:04 10/09/24 20:04 Labs: Lab Results 10/09/24 Range/Units 20:04 WBC 16.9 H (4.8-10.8) X10*3/uL RBC 5.37 (4.20-5.50) X10*6/uL Hgb 16.5 H (12.0-16.0) g/dl Hct 48.9 H (37.0-47.0) % MCV 91.1 (80.0-98.0) fL MCH 30.7 (27.0-33.0) pg MCHC 33.7 (31.0-35.0) g/dl RDW 12.2 (11.0-16.0) % Plt Count 317 (160-400) X10*3/uL MPV 9.6 (9.4-12.3) fL Immature Gran % (Auto) Cancelled Neut % (Auto) Cancelled Lymph % (Auto) Cancelled Woodward % (Auto) Cancelled Eos % (Auto) Cancelled Baso % (Auto) Cancelled Lymph # (Auto) Cancelled Woodward # (Auto) Cancelled Eos # (Auto) Cancelled Baso # (Auto) Cancelled Abs Immat Gran (auto) Cancelled Absolute Neuts (auto) Cancelled Absolute Nucleated RBC 0.000 (0.0-0.012) X10*3/uL Nucleated RBC % (auto) 0.0 (0.0-0.2) /100WBC Neutrophils % (Manual) 88 H (45-73) % Band Neutrophils % 7 H (3-5) % Lymphocytes % (Manual) 3 L (20-40) % Monocytes % (Manual) 2 (2-11) % Abs Neuts (Manual) 16.1 H (2.0-8.3) X10*3/uL Lymphocytes # (Manual) 0.5 L (1.2-4.9) X10*3/uL Monocytes # (Manual) 0.3 (0.1-1.2) X10*3/uL Toxic Vacuolation PRESENT Dohle Bodies PRESENT Platelet Estimate NORMAL (NORMAL) Plt Morphology Comment NORMAL RBC Morphology NORMAL Smear Tech's Comments MANUAL DIFF Sodium 138 (135-145) mmol/L Potassium 4.6 (3.3-5.1) mmol/L Chloride 108 (96-108) mmol/L Carbon Dioxide 19 L (22-29) mmol/L Anion Gap 16 (12-20) BUN 10 (9-16) mg/dL Creatinine 0.80 (0.5-1.4) mg/dL Estim Creat Clear Calc 106.2 Estimated GFR > 60 Random Glucose 123 H (60-115) mg/dL Calcium 9.3 (8.4-10.2) mg/dL Total Bilirubin 0.5 (0.0-1.0) mg/dL AST 16 (5-31) U/L ALT 13 (0-31) U/L Alkaline Phosphatase 99 (39-117) U/L Total Protein 8.2 H (6.5-8.0) g/dL Albumin 4.5 (3.5-5.0) g/dL Lipase 17 (8-78) U/L Beta HCG, Quant < 2 mIU/mL Influenza Type A (PCR) NEGATIVE (Negative) Influenza Type B (PCR) NEGATIVE (Negative) RSV RNA Qual (PCR) NEGATIVE (Negative) SARS-CoV-2 RNA (RT-PCR) NEGATIVE (Negative) Discharge Plan Discharge Clinical Impression: Viral syndrome, Acute dehydration Nausea & vomiting Qualifiers: Vomiting type: unspecified Qualified Code(s): R11.2 - Nausea with vomiting, unspecified Diarrhea Qualifiers: Diarrhea type: unspecified type Qualified Code(s): R19.7 - Diarrhea, unspecified Patient Disposition: Home, Self-Care Instructions: Viral Syndrome (ED) Additional Instructions: Your blood work did reveal an elevated white blood cell count which is consistent with a viral infection. Your laboratory evaluation did reveal low bicarb which is consistent wit your frequent vomiting and diarrhea. Take Zofran ODT 4 mg pills, 1 pill dissolved in your mouth every 8 hours as needed for nausea and vomiting. For diarrhea I want you to take Imodium 2 mg pills. ?Take 2 pills after the 1st loose, diarrheal stool then 1 pill after each loose, diarrheal stool up to 8 pills per day. ?This usually stops diarrhea within 24 hours. For the next 24 hours, stay on a HUSSEIN diet (bananas, rice, applesauce, tea and toast). Follow-up with your doctor in 2 days. Please return to the emergency department if your symptoms get worse or if you develop any symptoms that are concerning to you. Please see the return to work note Prescriptions: New ondansetron 4 mg tablet,disintegrating 4 mg PO Q6-8H PRN (Reason: nausea and vomiting) Qty: 14 0RF No Action omeprazole 20 mg tablet,delayed release (DR/EC) 20 mg PO BID Hair,Skin and Nails Tablet 1 tab PO DAILY bupropion HCl [Wellbutrin XL] 150 mg tablet extended release 24 hr 150 mg PO QAM Qty: 90 3RF albuterol sulfate 90 mcg/actuation HFA aerosol inhaler 2 puff inhalation Q6H PRN (Reason: shortness of breath or wheezing) Qty: 6.7 0RF gabapentin 300 mg capsule 300 mg PO BEDTIME 30 Days Qty: 30 0RF lidocaine 5 % adhesive patch,medicated 1 patch topical DAILY 30 Days Qty: 30 0RF Stand Alone Forms: Work/School Release Print Language: Bulgarian
[2024-10-09] MEDS: Ondansetron ODT 4 MG TAB.RAPDIS TRANSLINGU (19:55)
[2024-10-09 20:11] LABS: Hematocrit 48.9 % (37.0-47.0); Hemoglobin 16.5 g/dl (12.0-16.0); Mean Corpuscular HGB Conc 33.7 g/dl (31.0-35.0); Mean Corpuscular Hemoglobin 30.7 pg (27.0-33.0); Mean Corpuscular Volume 91.1 fL (80.0-98.0); Mean Platelet Volume 9.6 fL (9.4-12.3); Platelet Count 317 X10*3/uL (160-400); Red Blood Count 5.37 X10*6/uL (4.20-5.50); Red Cell Distribution Width 12.2 % (11.0-16.0); White Blood Count 16.9 X10*3/uL (4.8-10.8)
[2024-10-09 20:30] LABS: Alanine Aminotransferase 13 U/L (0-31); Albumin Level 4.5 g/dL (3.5-5.0); Alkaline Phosphatase 99 U/L (39-117); Anion Gap 16 (12-20); Aspartate Amino Transferase 16 U/L (5-31); Bilirubin Total 0.5 mg/dL (0.0-1.0); Blood Urea Nitrogen 10 mg/dL (9-16); Calcium 9.3 mg/dL (8.4-10.2); Carbon Dioxide 19 mmol/L (22-29); Chloride 108 mmol/L (96-108); Creatinine Clr Calc Pharmacy 106.2; Estimated Glomerular Filt Rate > 60; Glucose Random 123 mg/dL (60-115); Lipase 17 U/L (8-78); Potassium 4.6 mmol/L (3.3-5.1); SLIDE REVIEW MANUAL DIFF; Sodium 138 mmol/L (135-145); Total Protein 8.2 g/dL (6.5-8.0)
[2024-10-09 20:34] LABS: Band Neutrophils Percent 7 % (3-5); Lymphocytes Absolute Manual 0.5 X10*3/uL (1.2-4.9); Lymphocytes Percent Manual 3 % (20-40); Monocytes Absolute Manual 0.3 X10*3/uL (0.1-1.2); Monocytes Percent Manual 2 % (2-11); Neutrophils Absolute Manual 16.1 X10*3/uL (2.0-8.3); Neutrophils Percent Manual 88 % (45-73)
[2024-10-09 20:35] LABS: Dohle Bodies PRESENT; Platelet Estimate NORMAL (NORMAL); RBC Morphology NORMAL; Toxic Vacuolation PRESENT
[2024-10-09 20:36] LABS: Platelet Morphology Comment NORMAL
[2024-10-09 20:37] LABS: HCG Quantitative < 2 mIU/mL
[2024-10-09 20:52] LABS: Influenza A PCR NEGATIVE (Negative); Influenza B PCR NEGATIVE (Negative); Resp Syncy Virus RNA Qual PCR NEGATIVE (Negative); SARS COV2 PCR INHOUSE NEGATIVE (Negative)
[2024-10-10 00:18] VITALS: BP 127/68; PULSE 91; RESP 18; TEMP 37.4; O2SAT 98
--- NOTE | 2024-10-10 00:19 | MHC.EDTECH ---
This pct just assumed care of Patient ,vitals taken ,Patient resting quietly in bed .Pt aware we need urine sample .
--- NOTE | 2024-10-10 00:25 | PC.NURSE ---
Pt a&ox4, no signs of distress. Pt reports zofran given earlier was effective and she was able to drink and hold fluid Plan of care ongoing.
[2024-10-10] MEDS: 0.9 % Sodium Chloride 1,000 ML 999 ML IV (01:48)
[2024-10-10] MEDS: ondansetron HCL 4 MG/2 ML VIAL IVPUSH (01:48)
[2024-10-10] MEDS: Loperamide HCl 2 MG CAPSULE 4 MG PO (01:53)
[2024-10-10 02:00] VITALS: BP 113/54; PULSE 86; RESP 18; TEMP 37.1; O2SAT 99
--- NOTE | 2024-10-10 02:00 | PC.NURSE ---
Pt medicated per mar Pt requested and given crackers Plan of care ongoing.
[2024-10-10 03:11] VITALS: BP 113/54; PULSE 86; RESP 18; TEMP 37.1; O2SAT 99
== END 2024-10-10 03:15 | disposition home or self-care (01) ==
PROVIDERS: Physician Assistant; Emergency Provider Emergency Medicine Emergency Medical Services; PCP Internal Medicine
DX: B34.9 Viral infection, unspecified (principal); R11.2 Nausea with vomiting, unspecified; R42 Dizziness and giddiness; E86.0 Dehydration; R19.7 Diarrhea, unspecified; R10.2 Pelvic and perineal pain; Z79.899 Other long term (current) drug therapy; Z03.818 Encounter for observation for suspected exposure to other biological agents ruled out
CPT/HCPCS: 0241U; 36415; 80053; 83690; 84702; 85007; 85027; 96361; 96374; 99284; J2405

== ENCOUNTER 2025-07-27 10:29 | Outpatient (REF) | payer OTHER, SELFPAY ==
--- NOTE | ~2025-07-27 | MM_ITS ---
EXAMINATION: MM SCREENING DIGITAL BREAST TOMOSYNTHESIS, BILATERAL CLINICAL INFORMATION: Screening. Asymptomatic. COMPARISON: Mammography: Comparison is made with available priors TECHNIQUE: Digital breast mammography with tomosynthesis is performed in both the craniocaudal and mediolateral oblique views along with computer-aided detection (CAD). FINDINGS: The breasts are heterogeneously dense, which may obscure small masses. There are no significant masses, abnormal calcifications, or other abnormalities. MM/MM tomosynthesis screening BI IMPRESSION: No mammographic evidence of malignancy. ASSESSMENT: BI-RADS Category 1: Negative RECOMMENDATION: Routine annual mammography screening. 1 year F/U This examination should not preclude the clinical evaluation of a suspicious palpable abnormality. This patient's information was entered into a reminder system with a target due date for their next mammogram. Electronically signed by: Suzy Stuart DO 07/30/2025 05:27 PM EDT
--- OUTSIDE RECORDS SUMMARY | 2025-07-27 12:38 | XMS_ITS | Encounter Summary ---
Author Organization [facility] Address [address] [facility] [address] [facility] [address] [place] [id number] Phone Care Team Providers Care Airline Security Representative Name Role Phone Mohini Almaguer MD Primary Care Provider Encounter Details Date Type Department Care Team (Late st Contact Info) Description 06/01/2024 Procedure Pass [facility]oscopy Admitting Dept Virtual Department [address] [place] [address] Social History Tobacco Use Types Packs/Day Years Used Date Smoking Tobacco: Never Smokeless Tobacco: Never Alcohol Use Standard Drinks/Week Comments Yes 0 (1 standard drink = 0.6 oz pur e alcohol) 1-2 per month Education Answer Date Recorded Are you interested in more education? Not on lianet e 02/05/2023 Are you concerned about learning? Not on file 02/05/2023 No 02/05/2023 No 02/05/2023 Digital Access Answer Date Recorded No 03/06/2023 No 03/06/2023 Reliable internet access at home? Not on file 03/06/2023 Device with a working camera? Not on file Intimate Partner Violence Answer Date R ecorded Are you denied basic needs s uch as food, clothing, or medical care? No 06/01/2024 In the past 12 months have y ou been in a relationship with a person who hurts, threatens, or tries to control you? No 06/01/2024 Are you denied basic needs s uch as food, clothing, or medical care? No 06/01/2024 In the past 12 months have y ou been in a relationship with a person who hurts, threatens, or tries to control you? No 06/01/2024 Comments No Sex and Gender Information Value Date Recorded Sex Assigned at Female 04/19/2019 5:24 AM EDT Legal Sex Female 7:47 AM EDT Gender Identity Female 04/19/2019 5:24 AM EDT Sexual Orientation Straight 08/01/2019 9: 05 PM EDT documented as of this encounter Plan of Treatment Not on file documented as of this encounter Visit Diagnoses Not on filedocumented in this encounter Care Teams Airline Security Representative Relationship Specialty Start Date End Date Mohini Almaguer MD [address] [place] [id number] PCP - General Internal Medicine 06/01/24 documented as of this encounter Additional Source Comments The information contained in this document represents components of the legal health record. It is not the complete legal health record.[facility]
--- OUTSIDE RECORDS SUMMARY | 2025-07-27 12:38 | XMS_ITS | Encounter Summary ---
Author Organization [facility] Address [address] [facility] [address] [facility] [address] [place] [id number] Phone Care Team Providers Care Property Custodian Name Role Phone Chanelle Bateman NP Primary Care Provider + [phone] Mohini Almaguer MD Primary Care Provider Reason for Referral * MRI/CAT Scan - Closed Specialty Diagnoses / Procedures Referred By Contac t Referred To Contact Radiology Diagnoses Abdominal pain, unspecified abdominal location Diarrhea, unspecified type Procedures CT Abdomen/Pelvis Wolf Villalobos MD Phone: tel: fax: [email or web address] Referral ID Status Reason Start Date Expiration Date Visits Re quested Visits Authorized [id number] Closed 08/08/2018 10/07/2018 1 1 Encounter Details Date Type Department Care Team (Late st Contact Info) Description 08/09/2018 Ancillary Orders Virtual Department [address] [place] [address] Wolf Villalobos MD [address] [place] [id number] [email or web address] Abdominal pain, unspecified abdominal location; Diarrhea, unspecified type Social History Tobacco Use Types Packs/Day Years Used Date Smoking Tobacco: Never Assessed Comments Unknown Sex and Gender Information Value Date Recorded Sex Assigned at Female 04/19/2019 5:24 AM EDT Legal Sex Female 7:47 AM EDT Gender Identity Female 04/19/2019 5:24 AM EDT Sexual Orientation Straight 08/01/2019 9: 05 PM EDT documented as of this encounter Plan of Treatment Not on file documented as of this encounter Results * CT ABDOMEN/PELVIS WITH CONTRAST (08/22/2018 3:47 PM EST) Anatomical Region Laterality Modality Abdomen, Pelvis Computed Tomogra phy 08/22/2018 4:46 PM EST Addenda Addendum by Ras Shafer MD on 08/26/2018 6:09 PM EST Correction: Musculoskeletal: NO SUSPICIOUS lytic or blastic lesions within the bones. Impressions 08/22/2018 5:00 PM EST 1. Fatty infiltration of liver. 2. No evidence of acute pathology in the abdomen or pelvis. 3. Nonspecific mildly enlarged right external lymph node which could be reactive. TOTAL CTDIvol: 46.20 mGy POS - [id number] Narrative 08/22/2018 5:00 PM EST HISTORY: Abdominal pain, diarrhea. COMPARISON: None. TECHNIQUE: CT abdomen and pelvis with IV and oral contrast. Multiplanar reformatted images generated. Automated exposure control utilized. FINDINGS: Lower hemithoraces: No evidence of significant abnormalities. GI: No marked bowel distention or evidence of bowel wall thickening. Normal appendix in the right side of the pelvis. No free fluid, free air or evidence of an organized collection. Liver/spleen: The liver is moderately hypodense diffusely. Liver margins are smooth. No evidence of suspicious hepatic masses. Spleen normal. Pancreas/biliary: Pancreas normal. No evidence of biliary ductal dilatation. Adrenals/: Adrenals normal. Kidneys normal. Ureters normal in caliber. Urinary bladder is undistended. The uterus appears to be surgically absent. Lymph node/lymphatics: Mildly enlarged lymph node in the right external iliac chain measuring 12 mm in short axis (series 4, image 197). No other measurable enlarged lymph nodes. Cardiovascular: No significant abnormalities. Musculoskeletal: Suspicious lytic or blastic lesions within the bones. Procedure Note Ras Shafer MD - 08/22/2018 HISTORY: Abdominal pain, diarrhea. COMPARISON: None. TECHNIQUE: CT abdomen and pelvis with IV and oral contrast. Multiplanarreformatted images generated. Automated exposure control utilized. FINDINGS: Lower hemithoraces: No evidence of significant abnormalities. GI: No marked bowel distention or evidence of bowel wall thickening.Normal appendix in the right side of the pelvis. No free fluid, free airor evidence of an organized collection. Liver/spleen: The liver is moderately hypodense diffusely. Liver marginsare smooth. No evidence of suspicious hepatic masses. Spleen normal. Pancreas/biliary: Pancreas normal. No evidence of biliary ductaldilatation. Adrenals/: Adrenals normal. Kidneys normal. Ureters normal incaliber. Urinary bladder is undistended. The uterus appears to besurgically absent. Lymph node/lymphatics: Mildly enlarged lymph node in the right externaliliac chain measuring 12 mm in short axis (series 4, image 197). No othermeasurable enlarged lymph nodes. Cardiovascular: No significant abnormalities. Musculoskeletal: Suspicious lytic or blastic lesions within the bones. IMPRESSION: 1. Fatty infiltration of liver. 2. No evidence of acute pathology in the abdomen or pelvis. 3. Nonspecific mildly enlarged right external lymph node which could bereactive. TOTAL CTDIvol: 46.20 mGy POS - [id number] Wolf Villalobos MD IMG CT ABD/PELVIS Edited Resu lt - Final documented in this encounter Visit Diagnoses Diagnosis Abdominal pain, unspecified abdominal location Diarrhea, unspecified type Abdominal pain, unspecified abdominal location Diarrhea, unspecified type documented in this encounter Care Teams Property Custodian Relationship Specialty Start Date End Date Chanelle Bateman NP PCP - General Family Medicine 08/08/18 05/31/24 Mohini Almaguer MD [facility] [place] [address] PCP - General Internal Medicine 06/01/24 documented as of this encounter Additional Source Comments The information contained in this document represents components of the legal health record. It is not the complete legal health record.[facility]
--- OUTSIDE RECORDS SUMMARY | 2025-07-27 12:38 | XMS_ITS | Clinical Summary ---
Author Organization [facility] Address [address] [place] [address] Phone Care Team Providers Care Rewinder Name Role Phone Mohini Almaguer MD Primary Care Provider Allergies No known active allergies Medications omeprazole (PRILOSEC) 20 MG capsule Take 20 mg by mouth daily. Active albuterol 90 mcg/actuation inhaler Inhale 2 puffs into the lungs every 6 (six) hours as needed for wheezing. Active cyclobenzaprine (FLEXERIL) 5 MG tablet Take 1 tablet (5 mg total) by mouth 3 (three) times a day as needed (spasm). 10 tablet 08/02/2019 Active buPROPion (WELLBUTRIN XL) 150 MG ER 24 hr tablet 05/17/2024 Active Social History Tobacco Use Types Packs/Day Years [...] Orientation Straight 08/01/2019 9: 05 PM EDT Last Filed Vital Signs Vital Sign Reading Time Taken Comments Blood Pressure 98/45 06/01/2024 8:34 AM EDT Pulse 76 06/01/2024 8:53 AM EDT Temperature 36 C (96.8 F) 06/01/2024 8:34 AM EDT Respiratory Rate 16 06/01/2024 8:53 AM EDT Oxygen Saturation 98% 06/01/2024 8:53 AM EDT Inhaled Oxygen Concentration - - Weight 102.1 kg (225 lb) 05/30/2024 10:30 AM EDT Height 170.2 cm (5' 7 ) 05/30/2024 10:30 AM EDT Body Mass Index 35.24 05/30/2024 10:30 AM EDT Plan of Treatment Health Maintenance Due Date Last Done Comments LIPID PANEL 1980 DEPRESSION SCREENING 1992 HEPATITIS C SCREENING 02/17/1998 HIV ONE-TIME SCREENING (18-65 YEARS) 02/17/1998 PAP SMEAR 02/17/2001 MAMMOGRAM 2020 SCREENING FOR DIABETES 12/25/2024 12/25/2021 COLOGUARD 02/17/2025 FIT TEST 02/17/2025 FOBT 02/17/2025 SIGMOIDOSCOPY 02/17/2025 VIRTUAL COLONOSCOPY 02/17/2025 INFLUENZA VACCINE (#1) 2025 , 08/30/2020, 07/07/2019, Additional history exists COVID-19 VACCINE ( season) 2025 10/14/2021, 12/12/2020, 11/14/2020 Adult Td,Tdap Booster 10/25/2028 10/25/2018 COLONOSCOPY 06/01/2034 06/01/2024 COLORECTAL CANCER SCREENING 06/01/2034 SMOKING STATUS SCREENING (Once After 26 Yrs) Completed 06/01/2024 HEPATITIS A VACCINES Aged Out No long er eligible based on patient's age to complete this topic HIB VACCINES Aged Out No longer eligi ble based on patient's age to complete this topic MENINGOCOCCAL VACCINES (ACWY) Aged Out No longer eligible based on patient's age to complete this topic MENINGOCOCCAL VACCINES (B) Aged Out N o longer eligible based on patient's age to complete this topic PNEUMOCOCCAL VACCINES (0-49 years) Aged Out No longer eligible based on patient's age to complete this topic Medical Devices Not on file Procedures Procedure Name Priority Date/Time Associated Diagnosis Comments ENDOSCOPY, COLON 06/01/2024 8:01 AM EDT from Last 3 Months or Most Recently Relevant to Health Maintenance Results * ENDOSCOPY, COLON (06/01/2024 8:01 AM EDT) Narrative Transcriptions Casie Vasquez MD - 06/01/2024 8:01 AM EDT Patient Name: Carmel Simons Attending MD:: CASIE VASQUEZ MD, Procedure Date: 06/01/2024 8:01 AM Date of : 1980 Age: 44 Admit Type: Outpatient Gender: Female Room: [place] [address] Referring MD: Mohini Almaguer MD Exam Type: Colonoscopy Indications: Screening for colon cancer: Family history of colorectal cancer in distant relative(s), Last colonoscopy: August 2018, Change in bowel habits, Chronic diarrhea Medications: Monitored Anesthesia Care Procedure: Informed consent was obtained from the patientafter discussion of the indications, limitations, alternatives, benefits, and risks of the procedure. Risks specifically discussed include but are not limited to medication reactions, missed lesions, bleeding, perforation, or the need for emergent surgery. Throughout the procedure, the patient's blood pressure, pulse, end-tidal CO2, and oxygensaturations were monitored continuously. The Colonoscope was introduced through the anus and advanced to the cecum, identified by theappendiceal orifice, ileocecal valve and palpation. The colonoscopy was performed without difficulty. The patient tolerated the procedure fairly well. The quality of the bowel preparation was good. Complications: No immediate complications. Estimated blood loss: Minimal. Findings: The perianal and digital rectal examinations were normal. Pertinent negatives include no palpablerectal lesions. A few small-mouthed diverticula were found in the sigmoid colon, descending colon and ascendingcolon. There was no evidence of diverticular bleeding. Retroflexion in the right colon was performed. The exam was otherwise without abnormality ondirect and retroflexion views. Impression: - Moderate diverticulosis in the sigmoid colon, inthe descending colon and in the ascending colon. Therewas no evidence of diverticular bleeding. - The examination was otherwise normal on directand retroflexion views. - No specimens collected. Recommendation: - I will send results of your biopsy to you andyour referring physician or provider. If you do notreceive notification within 3 weeks, please call ouroffice. - Repeat colonoscopy in 10 years for screening purposes. - Use fiber, for example Citrucel, Fibercon, Konsylor Metamucil. CASIE VASQUEZ MD 06/01/2024 8:35:44 AM This report has been signed electronically. Number of Addenda: 0 Note Initiated On: 06/01/2024 8:01 AM Procedure Code(s): --- Professional --- 60069, Colonoscopy, flexible; diagnostic, including collection of specimen(s) by brushing or washing, when performed (separateprocedure) --- Technical --- 71543, Colonoscopy, flexible; diagnostic, including collection of specimen(s) by brushing or washing, when performed (separateprocedure) Diagnosis Code(s): --- Professional --- Z12.11, Encounter for screening for malignantneoplasm of colon Z80.0, Family history of malignant neoplasm of digestive organs R19.4, Change in bowel habit K52.9, Noninfective gastroenteritis and colitis, unspecified K57.30, Diverticulosis of large intestine without perforation or abscess without bleeding --- Technical --- Z12.11, Encounter for screening for malignantneoplasm of colon Z80.0, Family history of malignant neoplasm of digestive organs R19.4, Change in bowel habit K52.9, Noninfective gastroenteritis and colitis, unspecified K57.30, Diverticulosis of large intestine without perforation or abscess without bleeding CPT copyright 2021 [employer]. All rights reserved. The codes documented in this report are preliminary and upon roller structural mill reviewmay be revised to meet current compliance requirements. Procedure Date: 06/01/2024 8:01:00 AM [address] [place] [address] Mohini Almaguer MD GI PROCEDURE ORDERABLE S Final Result from Last 3 Months or Most Recently Relevant to Health Maintenance Insurance [employer] O POS EPO [facility] POS EPO [facility] POS EPO [facility] POS EPO [facility] POS EPO PROGR[employer]IVE INSURANCE [employer] O POS EPO Care Teams Rewinder Relationship Specialty Start Date End Date Mohini Almaguer MD [address] [place] [address] PCP - General Internal Medicine 06/01/24 Additional Source Comments The information contained in this document represents components of the legal health record. It is not the complete legal health record.[facility]
--- OUTSIDE RECORDS SUMMARY | 2025-07-27 12:39 | XMS_ITS | Encounter Summary ---
Author Organization [facility] Address [address] [address] Phone Care Team Providers Care Street Railway Line Installer Name Role Phone Chanelle Bateman NP Primary Care Provider + [phone] Mohini Almaguer MD Primary Care Provider Reason for Referral * MRI/CAT Scan - Closed Specialty Diagnoses / Procedures Referred By Contdavid polk Referred To Contact Radiology Diagnoses CRP elevated Generalized abdominal pain Fatty liver disease, nonalcoholic Procedures CT Abdomen/Pelvis CHG CT SCAN,ABDOMENT AND PELVIS,W CONTRAST CHG CT SCAN,ABDOMENT AND PELVIS,COMBO Lana Fofana CNP Phone: tel: fax: [email or web address] Referral ID Status Reason Start Date Expiration Date Visits Re quested Visits Authorized [id number] Closed 01/27/2022 01/27/2022 1 1 Encounter Details Date Type Department Care Team (Latest Contact Info) Description 12/30/2021 Transcribe Orders Virtual Department [address] [place] [address] Lana Fofana CNP [address] [place], [place] [id number] [email or web address] CRP elevated (Primary Dx); Generalized abdominal pain; Fatty liver disease, nonalcoholic Social History Tobacco Use Types Packs/Day Years Used Date Smoking Tobacco: Never Smokeless Tobacco: Never Alcohol Use Standard Drinks/Week Comments Yes 0 (1 standard drink = 0.6 oz pur e alcohol) Comments No Sex and Gender Information Value Date Recorded Sex Assigned at Female 04/19/2019 5:24 AM EDT Legal Sex Female 7:47 AM EDT Gender Identity Female 04/19/2019 5:24 AM EDT Sexual Orientation Straight 08/01/2019 9: 05 PM EDT documented as of this encounter Plan of Treatment Not on file documented as of this encounter Results * CT ABDOMEN/PELVIS WITH AND WITHOUT CONTRAST (01/27/2022 11:14 AM EDT) Anatomical Region Laterality Modality Abdomen, Pelvis Computed Tomogra phy 01/27/2022 12:0 9 PM EDT Impressions 01/27/2022 12:55 PM EDT 1.Mild fatty infiltration of the liver. 2.No evidence of acute pathology in the abdomen or pelvis. No explanation for pain or elevated CRP. Narrative 01/27/2022 12:[address] ABDOMEN/PELVIS WITH AND WITHOUT CONTRAST HISTORY: Elevated CRP, generalized abdominal pain. TECHNIQUE: Multidetector-row CT of the abdomen and pelvis was performed before and after administration of intravenous contrast using tailored dose modulation techniques. Images were reconstructed in the axial, coronal, and sagittal planes. Initially a non-enhanced study of the abdomen performed. This is followed by contrast-enhanced study at 30 second, 90 second and 5 minute delays. COMPARISON: CT abdomen/pelvis 08/22/2018. FINDINGS: Lower Chest: No significant abnormalities. Liver: The liver is mildly hypodense. Liver margins are smooth. Liver within normal limits in size. Tiny well-circumscribed hypodense mass in segment 7, too small to actively characterize is very likely benign and probably a cyst. This is not visualized on 08/22/2018. No other evidence of hepatic masses. Biliary: No biliary ductal dilatation. Spleen: No evidence of splenic masses. No splenomegaly. Pancreas: The pancreas appears normal. Adrenal Glands: No adrenal masses. Kidneys/Ureters: Kidneys appear normal. Ureters normal in caliber. Bowel: No marked bowel distention or evidence of bowel wall thickening. Peritoneum/Retroperitoneum: No free fluid, free air or evidence of masses. Lymph Nodes: No suspicious lymph nodes. Pelvic Organs/Bladder: Small cyst or dominant follicle within the right ovary measuring 2.3 cm in maximal diameter. The bladder is underdistended and poorly evaluated. Uterus appears to be surgically absent. Vessels: Portal vein patent. Abdominal aorta normal in caliber. Bones/Soft Tissues: No evidence of abdominal wall masses. No suspicious lytic or blastic lesion within the bones. Procedure Note Ras Conteh MD - 01/27/2022 CT ABDOMEN/PELVIS WITH AND WITHOUT CONTRAST HISTORY: Elevated CRP, generalized abdominal pain. TECHNIQUE: Multidetector-row CT of the abdomen and pelvis was performedbefore and after administration of intravenous contrast using tailoreddose modulation techniques. Images were reconstructed in the axial,coronal, and sagittal planes. Initially a non-enhanced study of theabdomen performed. This is followed by contrast-enhanced study at 30second, 90 second and 5 minute delays. COMPARISON: CT abdomen/pelvis 08/22/2018. FINDINGS: Lower Chest: No significant abnormalities. Liver: The liver is mildly hypodense. Liver margins are smooth. Liverwithin normal limits in size. Tiny well-circumscribed hypodense mass insegment 7, too small to actively characterize is very likely benign andprobably a cyst. This is not visualized on 08/22/2018. No other evidenceof hepatic masses. Biliary: No biliary ductal dilatation. Spleen: No evidence of splenic masses. No splenomegaly. Pancreas: The pancreas appears normal. Adrenal Glands: No adrenal masses. Kidneys/Ureters: Kidneys appear normal. Ureters normal in caliber. Bowel: No marked bowel distention or evidence of bowel wall thickening. Peritoneum/Retroperitoneum: No free fluid, free air or evidence ofmasses. Lymph Nodes: No suspicious lymph nodes. Pelvic Organs/Bladder: Small cyst or dominant follicle within the rightovary measuring 2.3 cm in maximal diameter. The bladder is underdistendedand poorly evaluated. Uterus appears to be surgically absent. Vessels: Portal vein patent. Abdominal aorta normal in caliber. Bones/Soft Tissues: No evidence of abdominal wall masses. No suspiciouslytic or blastic lesion within the bones. IMPRESSION: 1.Mild fatty infiltration of the liver. 2.No evidence of acute pathology in the abdomen or pelvis. No explanationfor pain or elevated CRP. Lana Fofana SUPERVISOR JEWELRY DEPARTMENT IMG CT ABD/PELVIS Final Re sult documented in this encounter Visit Diagnoses Diagnosis CRP elevated- Primary Elevated C-reactive protein (CRP) Generalized abdominal pain Abdominal pain, generalized Fatty liver disease, nonalcoholic CRP elevated Elevated C-reactive protein (CRP) Generalized abdominal pain Abdominal pain, generalized Fatty liver disease, nonalcoholic documented in this encounter Care Teams Street Railway Line Installer Relationship Specialty Start Date End Date Chanelle Bateman NP PCP - General Family Medicine 08/08/18 05/31/24 Mohini Almaguer MD [facility] [place] [address] PCP - General Internal Medicine 06/01/24 documented as of this encounter Additional Source Comments The information contained in this document represents components of the legal health record. It is not the complete legal health record.[facility]
--- OUTSIDE RECORDS SUMMARY | 2025-07-27 12:39 | XMS_ITS | Encounter Summary ---
Author Organization [facility] Address [address] [place] [address] Phone Care Team Providers Care Functional Support Analyst Name Role Phone Chanelle Bateman STRIKER OFF Primary Care Provider [phone] Mohini Almaguer MD Primary Care Provider Encounter Details Date Type Department Care Team (Late st Contact Info) Description 09/16/2018 Procedure Pass [facility] Endoscopy Admitting Dept Virtual Department [address] [place] [address] Social History Tobacco Use Types Packs/Day Years Used Date Smoking Tobacco: Never Smokeless Tobacco: Never Alcohol Use Standard Drinks/Week Comments Yes 0 (1 standard drink = 0.6 oz pur e alcohol) Comments Unknown Sex and Gender Information Value [...] on filedocumented in this encounter Care Teams Functional Support Analyst Relationship Specialty Start Date End Date Chanelle Bateman NP PCP - General Family Medicine 08/08/18 05/31/24 Mohini Almaguer MD [facility] [place] [address] PCP - General Internal Medicine 06/01/24 documented as of this encounter Additional Source Comments The information contained in this document represents components of the legal health record. It is not the complete legal health record.[facility]
--- OUTSIDE RECORDS SUMMARY | 2025-07-27 12:39 | XMS_ITS | Encounter Summary ---
Author Organization [facility] Address [address] [place] [address] Phone Care Team Providers Care Fire Apparatus Sprinkler Inspector Name Role Phone Chanelle Bateman NP Primary Care Provider [phone] Mohini Almaguer MD Primary Care Provider Encounter Details Date Type Department Care Team (Latest Contact Info) Description 12/25/2021 Transcribe Orders [facility] [address] [place] [address] Lana Fofana, [facility] [address] [place] [address] [email or web address] Abdominal pain, periumbilical (Primary Dx) Social History Tobacco Use Types Packs/Day Years [...] documented as of this encounter Results * (ABNORMAL) CBC and differential (12/25/2021 9:50 AM EDT) WBC 10.67 4.00 - 11.00 K/uL [facility] RBC 4.95 3.72 - 5.30 M/uL [facility] HGB 15.4 10.6 - 15.5 g/dL [facility] HCT 44.0 32.0 - 45.0 % [facility] PLT 331 140 - 430 K/uL [facility] MCV 88.9 78.0 - 97.0 fL [facility] MCH 31.1 25.0 - 33.0 pg [facility] MCHC 35.0 32.0 - 36.0 g/dL [facility] RDW 12.1 11.0 - 16.0 % [facility] MPV 10.9 8.4 - 12.8 fl [facility] NRBC 0.00 0 /100 WBCs [facility] ABSOLUTE NRBC 0.00 0 K/uL [facility] DIFF METHOD Auto [facility] NEUTS 61.1 43.0 - 75.0 % [facility] LYMPHS 29.7 18.2 - 47.4 % [facility] MONOS 5.5 4.00 - 11.00 % [facility] EOS 2.2 0.0 - 8.0 % [facility] BASOS 0.7 0.0 - 2.0 % [facility] Granulocytes, immature (%) 0.8 0.0 - 0.9 % [facility] ABSOLUTE NEUTS 6.52 1.80 - 7.70 K/uL [facility] ABSOLUTE LYMPHS 3.17(H) 1.00 - 3.10 K/uL [facility] ABSOLUTE MONOS 0.59 0.20 - 0.80 K/uL [facility] ABSOLUTE EOS 0.23 0.00 - 0.80 K/uL [facility] ABSOLUTE BASOS 0.07 0.00 - 0.09 K/uL [facility] Granulocytes, immature 0.09(H) 0.00 - 0.05 K/uL [facility] Blood 12/25/2021 9:50 AM EDT 12/25/2021 9:54 AM EDT us Lana Fofana CNP LAB BLOOD ORDERABLES Final Result [facility] [address] [place] [address] * (ABNORMAL) C-Reactive Protein (12/25/2021 9:50 AM EDT) C REACTIVE PROTEIN 21.6(H) 0.0 - 4.0 mg/L [facility] Blood 12/25/2021 9:50 AM EDT 12/25/2021 9:54 AM EDT us Lana Fofana [facility] LAB BLOOD ORDERABLES Final Result [address] [address] * (ABNORMAL) Comprehensive metabolic panel (12/25/2021 9:50 AM EDT) [facility] SODIUM 137 133 - 146 mmol/L [facility] POTASSIUM 4.2 3.3 - 5.1 mmol/L [facility] CHLORIDE 104 96 - 108 mmol/L [facility] CO2 21 21 - 35 mmol/L [facility] BUN 10 6 - 19 mg/dL [facility] CREATININE 0.80 0.5 - 1.5 mg/dL [facility] GLUCOSE 118(H) 70 - 99 mg/dL [facility] ALBUMIN 4.3 3.9 - 4.8 g/dL [facility] TOTAL PROTEIN 7.9 6.5 - 8.0 g/dL [facility] CALCIUM 9.3 8.4 - 10.3 mg/dL [facility] ALKALINE PHOSPHATASE 100 39 - 117 U/L [facility] TOTAL BILIRUBIN 0.4 0.0 - 1.2 mg/dL [facility] AST 19 0 - 37 U/L [facility] ALT 13 0 - 40 U/L [facility] GLOBULIN 3.6 1 - 4.8 g/dL [facility] EGFR 95 >59 mL/min/1.7 3m2 [facility] Comment:Estimated glomerular filtration rate calculated using the CKD-EPI refit equation. ANION GAP 16 10 - 20 mmol/L [facility] Blood 12/25/2021 9:50 AM EDT 12/25/2021 9:54 AM EDT us Lana Fofana [facility] LAB BLOOD ORDERABLES Final Result Performing Organization Address [facility]/ZIP Co de Phone Number [address] [address] * Immunoglobulin A (12/25/2021 9:50 AM EDT) IgA 226 70 - 400 mg/dL [facility] Blood 12/25/2021 9:50 AM EDT 12/25/2021 9:54 AM EDT Lana Fofana [facility] LAB BLOOD ORDERABLES Final Result Performing Organization Address [facility] de Phone Number [address] [address] * Tissue transglutaminase IgA (12/25/2021 9:50 AM EDT) TTG IGA ANTIBODY <1.2 <4.0 (Negative) U/mL [facility] Blood 12/25/2021 9:50 AM EDT 12/25/2021 9:55 AM EDT Lana Fofana [facility] LAB BLOOD ORDERABLES Final Result Performing Organization Address [facility] de Phone Number [facility] [place] [address] documented in this encounter Visit Diagnoses Diagnosis Abdominal pain, periumbilical- Primary Abdominal pain, periumbilic documented in this encounter Care Teams Fire Apparatus Sprinkler Inspector Relationship Specialty Start Date End Date Chanelle Bateman NP PCP - General Family Medicine 08/08/18 05/31/24 Mohini Almaguer MD [address] [facility] [place] [address] PCP - General Internal Medicine 06/01/24 documented as of this encounter Additional Source Comments The information contained in this document represents components of the legal health record. It is not the complete legal health record.[facility]
--- OUTSIDE RECORDS SUMMARY | 2025-07-27 12:39 | XMS_ITS | Encounter Summary ---
Author Organization [facility] Address [address] [facility] [address] [place] [address] Phone Care Team Providers Care Asp Net Programmer Name Role Phone Chanelle Bateman EXCEL DEVELOPER Primary Care Provider [phone] Mohini Almaguer MD Primary Care Provider Encounter Details Date Type Department Care Team (Late st Contact Info) Description 12/30/2021 Procedure Pass [facility], Ct Scan - [address] [address] Social History Tobacco Use Types Packs/Day Years [...] on filedocumented in this encounter Care Teams Asp Net Programmer Relationship Specialty Start Date End Date Chanelle Bateman NP PCP - General Family Medicine 08/08/18 05/31/24 Mohini Almaguer MD [facility] [place] [address] PCP - General Internal Medicine 06/01/24 documented as of this encounter Additional Source Comments The information contained in this document represents components of the legal health record. It is not the complete legal health record.[facility]
== END 2025-07-27 10:30 | disposition home or self-care (01) ==
LOC: HO.MAMMO 10:29
DX: Z12.31 Encounter for screening mammogram for malignant neoplasm of breast (principal)
CPT/HCPCS: 77063; 77067

== ENCOUNTER → 2025-07-27 10:30 | Outpatient (BNV) | payer OTHER, SELFPAY | PROVIDERS: Visit Provider Internal Medicine | DX: Z12.31 Encounter for screening mammogram for malignant neoplasm of breast (principal) | CPT/HCPCS: 77063; 77067 ==